=== PATIENT | female | born 1955 | race Caucasian/White ===

== ENCOUNTER 2020-09-10 10:11 | Inpatient (IN) | payer MEDICARE, SELFPAY ==
[2020-09-10] VITALS (13 sets, daily range): BP systolic 104–163; BP diastolic 46–86; PULSE 93–118; RESP 16–24; TEMP 36.2–37.4; O2SAT 94–100; BMI 30.7
[2020-09-10 11:01] LABS: Basophils % 0.7 %; Eosinophils # 0.2 10^3/uL (0.0-0.8); Eosinophils % 3.6 %; Hematocrit 41.3 % (37.0-47.0); Hemoglobin 13.2 g/dL (11.5-15.3); Lymphocytes # 0.4 10^3/uL (0.8-4.8); Lymphocytes % 6.7 %; Mean Corpuscular Hemoglobin 30.2 pg (28.0-34.0); Mean Corpuscular Volume 94.5 fL (81-99); Mean Platelet Volume 10.1 fL (7.4-10.4); Monocytes # 0.9 10^3/uL (0.2-0.9); Monocytes % 14.8 %; Neutrophils % 73.9 %; Nucleated Red Blood Cells % 0 %; Platelet Count 217 10^3/cmm (130-400); Red Blood Count 4.37 10^6/uL (4.1-5.3); Red Cell Distribution Width 12.7 % (12.1-15.1); White Blood Count 6.1 10^3/uL (4.0-10.0)
[2020-09-10 11:15] LABS: Alanine Aminotransferase 36 U/L (0-33); Albumin Level 4.4 g/dL (3.5-5.2); Alkaline Phosphatase 125 IU/L (35-105); Anion Gap 19.7 (5-19); Aspartate Amino Transferase 31 U/L (0-32); Blood Urea Nitrogen 28 mg/dL (8-23); Calcium 9.7 mg/dL (8.5-10.5); Carbon Dioxide 16 mmol/L (22-29); Chloride 101 mmol/L (98-107); Creatine Phosphokinase 218 U/L (26-192); Globulin 2.7 g/dL (1.3-4.6); Glomerular Filtration Rate 20.1 mL/min (90-130); Glucose 386 mg/dL (65-115); Magnesium 1.5 mg/dL (1.7-2.3); Osmolality Calculated 289 mOsm/kg (285-295); Sodium 129 mmol/L (136-145); Total Bilirubin 0.3 mg/dL (0.15-1.2); Total Protein 7.1 g/dL (6.6-8.7)
[2020-09-10] MEDS: sodium chloride 0.9% 1,000 ML 999 ML IV ×2 (11:16→15:40)
[2020-09-10 11:30] LABS: Potassium 7.7 mmol/L (3.5-5.1)
--- NOTE | 2020-09-10 11:42 | ECG_ITS ---
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 Measurements Intervals [place] Rate: 92 P: 151 [place]: 135 QRS: -26 QRSD: 97 T: 149 QT: 367 QTc: 455 Interpretive Statements SINUS RHYTHM LOW QRS VOLTAGE IN PRECORDIAL LEADS [QRS DEFLECTION < 1.0 mV IN CHEST LEADS] INCOMPLETE RIGHT BUNDLE BRANCH BLOCK [90+ ms QRS DURATION, TERMINAL R IN V1/V2, 40+ ms S IN I/aVL/V4/V5/V6] SEPTAL MYOCARDIAL INFARCTION , OF INDETERMINATE AGE [40+ ms Q WAVE IN V1/V2] Nonspecific T wave changes in the high lateral leads No previous ECG available for comparison Electronically Signed On 09-10-2020 20:12:15 RACKET STRINGER by Francisco Martinez M.D. [id number]
[2020-09-10] MEDS: dextrose 50% syringe 50 mL IVP (11:56)
[2020-09-10] MEDS: sodium bicarbonate 8.4% 1 mEq/mL 50mL Syr 50 MEQ IVP (11:57)
[2020-09-10] MEDS: insulin regular-human 100 units/1 mL 10 UNIT IVP (11:58)
[2020-09-10] MEDS: FUROsemide 10 mg/mL SDV 4mL 40 MG IVP (11:58)
--- NOTE | 2020-09-10 11:59 | W.ED.RECABL ---
HPI - Recheck/Abnormal Lab/Rx General: Chief Complaint: Recheck/Abnormal Lab/Rx Stated Complaint: weakness Time Seen by Provider: 09/10/20 10:21 History of Present Illness: HPI narrative: 65-year-old female with a history of chronic kidney disease in after she had some routine labs drawn by her primary care physician and reportedly there was some abnormalities including her potassium that was elevated as well as worsening renal function. The patient's only complaint is she has been intermittently weak. Patient reports that she has recently been on some new medications but she is unclear exactly what those are. She says one was for pain and another one was for an infection. Patient unfortunately is a somewhat poor historian and does not have her medications with her. Review of Systems General: Reports: 10 or more systems reviewed and unremarkable except in HPI and below Physical Exam Const: COMMON NORMALS: no acute distress, patient oriented x3, no limitations and healthy appearing EXAM LIMITATIONS: no altered mental status HENMT: COMMON NORMALS: normocephalic, atraumatic, hearing grossly normal bilaterally and Normal nasal mucous membranes and turbinates present HEAD & SCALP: normocephalic and atraumatic NOSE: Normal nasal mucous membranes and turbinates present Chest: COMMONS NORMALS: normal inspection of the chest Resp: COMMON NORMALS: normal respiratory effort EFFORT & INSPECTION: Yes able to speak in complete sentences Cardio: COMMON NORMALS: regular rate, regular rhythm and S1 normal heart sound present RATE: regular rate RHYTHM: regular rhythm HEART SOUNDS: S1 normal heart sound present GI: COMMON NORMALS: Normal to inspection, nondistended, normoactive bowel sounds present, Soft to palpation and non-tender PALPATION: Yes Soft to palpation Neuro: TEMITOPE COMA SCALE: document GCS findings COMMON NORMALS: patient oriented x3, CN's II-XII intact bilaterally and moves all extremities Skin: COMMON NORMALS: no rashes or lesions noted GENERAL SKIN EXAM: no rashes or lesions noted Course Vital Signs: Vital signs: Vital Signs Temperature 97.1 F L 09/10/20 10:13 Pulse Rate 106 H 09/10/20 13:15 Respiratory Rate 16 09/10/20 13:15 Blood Pressure 148/78 09/10/20 12:20 Pulse Oximetry 98 09/10/20 13:15 MDM - Recheck/Abnormal Lab/Rx MDM Narrative: Medical decision making narrative: 65-year-old female sent over for abnormal labs. We will plan on repeating those labs and add a magnesium and creatinine kinase and give her some IV fluids now check an EKG and will wait for lab results make further recommendations. Labs came back markedly abnormal. Patient has significantly elevated potassium but surprisingly she does not have a lot of EKG changes with this. We will have to check and see if we can find some old labs for comparison but she likely needs to come in the hospital for treatment of hyperkalemia and acute on chronic kidney injury. Called and talked with Dr. Altman her last creatinine back in June was 1.1 with a normal potassium. Patient has been given a cocktail of medications to treat her hyperkalemia. Will admit to the hospitalist. Talked to Hospitalist who will come down and see the patient in the ED. Lab Data: Labs: Lab Results 09/10/20 09/10/20 09/10/20 Range/Units 10:50 10:50 12:28 WBC 6.1 (4.0-10.0) 10^3/ uL RBC 4.37 (4.1-5.3) 10^6/u L Hgb 13.2 (11.5-15.3) g/dL Hct 41.3 (37.0-47.0) % MCV 94.5 (81-99) fL MCH 30.2 (28.0-34.0) pg MCHC 32.0 (30.0-36.0) g/dL RDW 12.7 (12.1-15.1) % Plt Count 217 (130-400) 10^3/c mm MPV 10.1 (7.4-10.4) fL Neut % (Auto) 73.9 % Lymph % (Auto) 6.7 % Isabela % (Auto) 14.8 % Eos % (Auto) 3.6 % Baso % (Auto) 0.7 % Neut # (Auto) 4.50 (1.8-7.7) 10^3/u L Lymph # (Auto) 0.4 L (0.8-4.8) 10^3/u L Isabela # (Auto) 0.9 (0.2-0.9) 10^3/u L Eos # (Auto) 0.2 (0.0-0.8) 10^3/u L Baso # (Auto) 0.0 (0.0-0.1) 10^3/u L Nucleated RBC % (a uto) 0 % Nucleated RBCs # 0.0 /100WBC Sodium 129 L (136-145) mmol/L Potassium 7.7 H* (3.5-5.1) mmol/L Chloride 101 (98-107) mmol/L Carbon Dioxide 16 L (22-29) mmol/L Anion Gap 19.7 H (5-19) BUN 28 H (8-23) mg/dL Creatinine 2.4 H (0.5-0.9) mg/dL GFR Calculation 20.1 L (90-130) mL/min Glucose 386 H (65-115) mg/dL Calculated Osmolal ity 289 (285-295) mOsm/k g Calcium 9.7 (8.5-10.5) mg/dL Magnesium 1.5 L (1.7-2.3) mg/dL Total Bilirubin 0.3 (0.15-1.2) mg/dL AST 31 (0-32) U/L ALT 36 H (0-33) U/L Alkaline Phosphata se 125 H (35-105) IU/L Creatine Kinase 218 H (26-192) U/L Total Protein 7.1 (6.6-8.7) g/dL Albumin 4.4 (3.5-5.2) g/dL Globulin 2.7 (1.3-4.6) g/dL Urine Color Yellow (Yellow) Urine Appearance Clear (CLEAR) Urine pH 6 (5-7) Ur Specific Gravit y 1.005 (1.005-1.030) Urine Protein Neg (Negative) Urine Glucose (UA) 4+ H (Normal) Urine Ketones Negative (Negative) Urine Blood Neg (Negative) Urine Nitrate Negative (Negative) Urine Bilirubin Neg (Negative) Urine Urobilinogen Norm (Negative) mg/dL Ur Leukocyte Alaina ase Negative (Negative) Discharge Plan Discharge Patient Disposition: Admitted As Inpatient Clinical Impression: Acute hyperkalemia, LULA (acute kidney injury) Condition: Stable Discharge Diet: Advance as tolerated Discharge Activity: Resume usual activity Coding Level of Care Code ED Hospice Massage Therapist for g Fwd Exam Comprehensive
[2020-09-10 12:44] LABS: Add Urine Microscopic? NO
[2020-09-10 12:55] LABS: Bilirubin Urine Neg (Negative); Blood Urine Neg (Negative); Glucose Urine UA 4+ (Normal); Ketones Urine Negative (Negative); Leukocyte Esterase Urine Negative (Negative); Nitrate Urine Negative (Negative); Protein Urine Neg (Negative); Specific Gravity, Urine 1.005 (1.005-1.030); Urine Appearance Clear (CLEAR); Urine Color Yellow (Yellow); Urobilinogen Urine Norm (Negative); pH Urine 6 (5-7)
--- NOTE | 2020-09-10 14:55 | PM.HP ---
Providers/Chief Complaint Admitting Physician: Mireya Lozano MD Primary Care Provider: Dr. Lennox Altman Chief Complaint: weakness, abnormal labs History of Present Illness Sarah Beatty is a 65 year old female with PMHx noted below presents to the ER after having received a phone call from her doctor's office due to noted abnormal labs. Labs were done yesterday as part of her routine work-up and it seems that this was primarily involving her kidney function. Per documentation from the ER it seems that her previous renal function done in June showed a creatinine of 1.1 with normal potassium. Labs done today indicate creatinine of 2.4 with noted hyperkalemia with a potassium of 7.7. She also has noted hyponatremia with a sodium of 129 though when corrected for hyperglycemia is about 134, CPK of 218, magnesium of 1.5, anion gap of 19.7, ALT of 36, normal CBC. No significant EKG changes noted. So far she has received 1 L normal saline bolus, lasix, calcium gluconate, albuterol, insulin and D50, sodium bicarbonate. She is resting comfortably in bed, niece is at bedside during my evaluation in the ER. Review of her medication list includes allopurinol, glimepiride, losartan, meloxicam and most recently addition of Bactrim for what she describes as sinusitis of which she has been taking a total of 7 days worth. She denies any shortness of breath, chest pain, lower extremity swelling, abdominal pain, nausea/vomiting, change in her appetite, change in her urinary or bowel habits. She does admit to having had some difficulty with ambulation and some generalized weakness over the past 2 days. Denies any recent falls and typically ambulates independently. She does not remember having taken Bactrim before. She will be admitted for further management of acute kidney injury and hyperkalemia. Review of Systems Const: Denies: fever(s), chills, change in appetite, fatigue or malaise Eyes: Denies: change in vision ENMT: Reports: post nasal drip Card: Denies: chest pain, swelling of feet/ankles or lightheadedness Resp: Denies: dyspnea, productive cough or non-productive cough GI: Denies: abdominal pain, nausea, vomiting, hematemesis or hematochezia : Denies: difficulty voiding, dysuria, oliguria or hematuria Musc: Denies: back pain Skin/Breast: Denies: rash Neuro: Reports: weakness in extremities, difficulty walking, dizziness and vertigo; Denies: numbness in extremities or frequent falls Psych: Denies: anxiety Medications/Allergies Home Medications Medication Instructions Recorded Confirmed Last Taken Type allopurinol 300 mg PO DAILY@0909/10/20 09/10/20 09/10/20 History atorvastatin 10 mg PO DAILY@209909/10/20 09/10/20 09/09/20 History cetirizine 10 mg PO DAILY@89909/10/20 09/10/20 09/10/20 History coQ10 (ubiquinol) 200 mg PO DAILY@89909/10/20 09/10/20 09/10/20 History glimepiride 2 mg PO DAILY@209909/10/20 09/10/20 09/09/20 History losartan 100 mg PO DAILY@209909/10/20 09/10/20 09/09/20 History meloxicam 7.5 mg PO DAILY@89909/10/20 09/10/20 09/10/20 History multivitamin [Multi-Vitamins] 1 tab PO DAILY@0900 09/10/20 09/10/20 Unknown History sulfamethoxazole-trimethoprim 1 tab PO BID@0900,209909/10/20 09/10/20 09/10/20 History Allergies Allergy/AdvReac Type Severity Reaction Status Date / Time cephalexin [From Keflex] Allergy ALGY-Rash Verified 09/10/20 10:23 Penicillins Allergy ALGY-Rash Verified 09/10/20 10:23 PFSH Acute PFSH: Medical History Dyslipidemia Gout HTN (hypertension) Non-insulin dependent diabetes mellitus Obesity Surgical History S/P tubal ligation Family History (Updated 09/10/20 @ 15:04 by Mireya Lozano MD) Sister Diabetes Daughter No problems noted. Brother Diabetes Social History (Updated 09/10/20 @ 15:04 by Mireya Lozano MD) Smoking and tobacco status: never smoked Alcohol intake: never Substance/Drug Use: never Lives independently: Yes Vitals/I&O/Wt Last Vital Signs Temp 97.1 F L 09/10/20 10:13 Pulse 107 H 09/10/20 13:30 Resp 16 09/10/20 13:15 BP 136/86 09/10/20 13:00 Pulse Ox 98 09/10/20 13:15 Weight last 48 hrs Weight 86.183 kg Physical Exam Const: COMMON NORMALS: no acute distress, patient oriented x3 and alert GENERAL APPEARANCE: cooperative and comfortable NUTRITIONAL APPEARANCE: obese ORIENTATION/CONSCIOUSNESS: Yes awake HENMT: COMMON NORMALS: normocephalic, atraumatic, hearing grossly normal bilaterally and moist oral mucous membranes HEAD & SCALP: normocephalic and atraumatic Eye: COMMON NORMALS: Equal, round and reactive pupils present, EOMs intact bilaterally and conjunctivae normal CONJUNCTIVA: Yes conjunctivae normal PUPIL: Yes Equal, round and reactive pupils present Neck/C-Spine: COMMON NORMALS: full ROM GENERAL: Yes normal visual inspection and Yes trachea midline Resp: COMMON NORMALS: normal respiratory effort, No retractions, No use of accessory muscles and clear to auscultation bilaterally EFFORT & INSPECTION: Yes able to speak in complete sentences, Yes symmetric chest movement and No tachypneic AUSCULTATION: clear to auscultation bilaterally OTHER: -on RA Cardio: COMMON NORMALS: regular rhythm, S1 normal heart sound present, S2 normal heart sound present and No murmurs present (Cardio) RATE: tachycardic (HR in 120s) RHYTHM: regular rhythm HEART SOUNDS: S1 normal heart sound present and S2 normal heart sound present GI: COMMON NORMALS: Normal to inspection, nondistended, normoactive bowel sounds present, Soft to palpation and non-tender INSPECTION: Yes central obesity PALPATION: Yes Soft to palpation Extremity: COMMON NORMALS: normal to inspection, full ROM and no clubbing, cyanosis or edema; negative for no pedal edema Neuro: COMMON NORMALS: patient oriented x3, moves all extremities, no focal motor deficits and no sensory deficits noted Psych: COMMON NORMALS: mental status grossly normal, Normal thought process present, cooperative, normal affect and speech normal SPEECH: Yes normal speech THOUGHT PROCESS: Normal thought process present Skin: COMMON NORMALS: no rashes or lesions noted, no jaundice, no petechiae and no mottling GENERAL SKIN EXAM: no rashes or lesions noted Data : 09/10/20 10:50 09/10/20 10:50 A&P Assessment and plan (1) Acute hyperkalemia: -initial K-7.7; has received 1 L NS bolus, lasix, insulin and D50, calcium gluconate, albuterol -repeat labs now -give additional NS bolus -ECG reviewed; no apparent T wave changes, QRS wnl -telemetry monitoring Status: Acute (2) LULA (acute kidney injury): -no comparison labs available so unclear baseline -suspect that this is medication induced given timeline -monitor renal function -IVF hydration -monitor urine output closely -avoid nephrotoxins, hold NSAIDs, oral hypoglycemics, diuretics, ARB, Bactrim (has been taking this x 1 week) -check Mg, Ph in AM -noted slight CPK elevation (218); repeat in AM Status: Acute (3) Non-insulin dependent diabetes mellitus: -check A1c -Accucheks, hypoglycemia precautions, ISS -consistent carb diet as tolerated Status: Chronic (4) HTN (hypertension): -monitor vital signs -hold ARB -low dose BB due to noted tachycardia Status: Chronic Qualifiers: Hypertension type: essential hypertension Qualified Code(s): I10 - Essential (primary) hypertension (5) Dyslipidemia: -hold statin for now Status: Chronic Additional A&P Information -Morbid obesity: BMI-31 kg/m2 -DVT ppx not needed as low risk -up with assist -Dispo: home -Code status: FULL code -Admit to medical-surgical floor Attestations Medical Necessity Statement*: Sarah Valverde [facility]'s hospital stay will require greater than 2 midnights for management of acute kidney injury and hyperkalemia including IV fluid hydration and close monitoring of labs. Time Spent in Patient Care: Greater than 35 minutes (>than 50% of time spent in counselling and/or direct pt care on unit). Coding Level of Care Code Acute Senior Talent Acquisition Specialist for Nadeem Mckeon Diagnoses Acute hyperkalemia E87.5 LULA (acute kidney injury) N17.9 Non-insulin dependent diabetes mellitus HTN (hypertension) I10 Hypertension type: essential hypertension Dyslipidemia E78.5
[2020-09-10 18:17] LABS: Anion Gap 20.9 (5-19); Blood Urea Nitrogen 25 mg/dL (8-23); Calcium 8.9 mg/dL (8.5-10.5); Carbon Dioxide 14 mmol/L (22-29); Chloride 102 mmol/L (98-107); Glomerular Filtration Rate 22.3 mL/min (90-130); Glucose 431 mg/dL (65-115); Osmolality Calculated 295 mOsm/kg (285-295); Potassium 5.9 mmol/L (3.5-5.1); Sodium 131 mmol/L (136-145)
[2020-09-10] MEDS: dextrose 50% syringe 50 mL 25 ML IVP (20:48)
[2020-09-10] MEDS: sodium chloride 0.9% 1,000 ML 125 ML IV (20:48)
[2020-09-10] MEDS: insulin regular-human 10 UNIT in SYRINGE 1 EACH IVP (20:48)
[2020-09-10 21:36] LABS: Glucose Point of Care 364 mg/dL (70-110)
[2020-09-10] MEDS: metoprolol tartrate 25 mg Tablet PO (22:46)
[2020-09-10 23:54] LABS: Anion Gap 15.8 (5-19); Blood Urea Nitrogen 24 mg/dL (8-23); Calcium 9.7 mg/dL (8.5-10.5); Carbon Dioxide 18 mmol/L (22-29); Chloride 106 mmol/L (98-107); Glomerular Filtration Rate 23.5 mL/min (90-130); Glucose 273 mg/dL (65-115); Osmolality Calculated 292 mOsm/kg (285-295); Potassium 5.8 mmol/L (3.5-5.1); Sodium 134 mmol/L (136-145)
[2020-09-11] VITALS (7 sets, daily range): BP systolic 112–126; BP diastolic 65–72; PULSE 78–102; RESP 17–18; TEMP 36.6–39.1; O2SAT 91–96
[2020-09-11] MEDS: sodium chloride 0.9% 1,000 ML 125 ML IV ×2 (05:31→15:30)
[2020-09-11 06:01] LABS: Basophils % 0.2 %; Eosinophils # 0.1 10^3/uL (0.0-0.8); Eosinophils % 2.6 %; Hematocrit 34.4 % (37.0-47.0); Hemoglobin 10.8 g/dL (11.5-15.3); Lymphocytes # 0.8 10^3/uL (0.8-4.8); Lymphocytes % 15.2 %; Mean Corpuscular HGB Conc 31.4 g/dL (30.0-36.0); Mean Corpuscular Hemoglobin 29.4 pg (28.0-34.0); Mean Corpuscular Volume 93.7 fL (81-99); Mean Platelet Volume 10.4 fL (7.4-10.4); Monocytes # 0.9 10^3/uL (0.2-0.9); Monocytes % 17.7 %; Neutrophils # 3.26 10^3/uL (1.8-7.7); Neutrophils % 64.1 %; Nucleated Red Blood Cells % 0 %; Platelet Count 182 10^3/cmm (130-400); Red Blood Count 3.67 10^6/uL (4.1-5.3); Red Cell Distribution Width 12.8 % (12.1-15.1); White Blood Count 5.1 10^3/uL (4.0-10.0)
[2020-09-11 06:15] LABS: Glucose Point of Care 136 mg/dL (70-110)
[2020-09-11 07:11] LABS: Estmated Average Glucose 243; Hemoglobin A1C 10.1 % (4.0-6.0)
[2020-09-11] MEDS: multivitamin therapeutic Tablet 1 TAB PO (09:09)
[2020-09-11] MEDS: metoprolol tartrate 25 mg Tablet PO (09:09)
[2020-09-11 09:31] LABS: Alanine Aminotransferase 27 U/L (0-33); Albumin Level 3.7 g/dL (3.5-5.2); Alkaline Phosphatase 99 IU/L (35-105); Anion Gap 14.8 (5-19); Aspartate Amino Transferase 24 U/L (0-32); Blood Urea Nitrogen 22 mg/dL (8-23); Calcium 9.5 mg/dL (8.5-10.5); Carbon Dioxide 18 mmol/L (22-29); Chloride 107 mmol/L (98-107); Creatine Phosphokinase 307 U/L (26-192); Globulin 2.4 g/dL (1.3-4.6); Glomerular Filtration Rate 23.5 mL/min (90-130); Glucose 146 mg/dL (65-115); Magnesium 1.4 mg/dL (1.7-2.3); Osmolality Calculated 284 mOsm/kg (285-295); Phosphorus 3.4 mg/dL (2.5-4.5); Potassium 5.8 mmol/L (3.5-5.1); Sodium 134 mmol/L (136-145); Thyroid Stimulating Hormone 1.36 uIU/mL (0.27-4.20); Total Bilirubin 0.3 mg/dL (0.15-1.2); Total Protein 6.1 g/dL (6.6-8.7)
--- NOTE | 2020-09-11 10:36 | PC.CHAP ---
Pastoral Care Encounter/Spiritual Assessment Type of Contact [] Declined it telecom technician visit [] Patient/Family/Request visit [] Outpatient visit [] Follow-up visit [] Physician referral [] Code/Alert [x] Routine visit [] Staff referral [] Actively dying [] Patient sleeping [] Family support [] [] Out of room [] Palliative care [] [x] Receiving care in room [] Pre-surgical visit [] Trauma [] Long length of stay [] ICU visit [] Other: Relational/Emotional Strength [x] Patient feels connected with others/family/visitors/staff [] Distress [] Loneliness/isolation [] Abandonment Spirituality of Patient [x] Person of [place] [] Attends Gnosticism of their [place] [x] Believes in Prayer [] Reads Bible or Zoroastrian materials [] There are Spiritual issues to be addressed Physician Obstetrician Interventions [x] Prayer [x] Active listening [x] Non-anxious presence [x] Spiritual/emotional support [] Crisis/trauma care [x] Spiritual counseling [] Bereavement support [] Provided bereavement packet [] Provided Bible/devotional materials [] Provided toy/stuffed animal, coloring book to patient or family member [] Provided Communion [] Anointing/[place] [] Salvation [x] Completed spiritual assessment [] Other: Impact on Illness or Injury [] Angry [] Fearful [x] Anxious [] Often cries [] Exhaustion [] Unable to work [] Unable to attend moravian [] Unable to walk/stand [] Unable to read [] Unable to drive [] Unable to eat/drink [] Unable to sleep [] Unable to be with family [] Patient intubated [] Other: Summary Has had some tests not sure about her recovery time , has a good attitude Time spent with patient 10 mins
[2020-09-11 10:51] LABS: Glucose Point of Care 261 mg/dL (70-110)
[2020-09-11] MEDS: diphenhydrAMINE 25 mg Capsule PO (11:44)
--- NOTE | 2020-09-11 12:10 | P.PN_ITS ---
Subjective Subjective: Interval history: Had 200 mL urine output overnight and an additional 600 mL this AM. VSS, afebrile, on RA. Continued hyperkalemia and renal impairment. Noted to have generalized itching and hives, unclear what may have caused this as this seems to be an allergic reaction, no wheezing, throat itching, coughing, facial swelling. Difficulty with IV access today. Repeat K th is afternoon worse, as high as 6.8 so nephrology consulted. Medications: Reviewed: Yes Medication Review Details: Active Medications Generic Name Dose Route Start Last Admin Trade Name Freq PRN Reason Stop Dose Admin Acetaminophen 650 mg 09/10/20 19:32 Acetaminophen 32 5 Mg Tablet PO Q6H PRN Mild/Mod Pain Or Temp >/= 101 Dextrose 25 ml 09/10/20 19:32 Dextrose 50% Syr bridgette 50 Ml IVP ONCE PRN hypoglycemia prot ocol Protocol Dextrose 50 ml 09/10/20 19:32 Dextrose 50% Syr bridgette 50 Ml IVP PRN PRN hypoglycemia prot ocol Protocol Diphenhydramine HC l 25 mg 09/11/20 11:05 09/11/20 11:44 Diphenhydramine 25 Mg Capsule PO 25 mg Q6H PRN Administration ITCHING Glucagon 1 mg 09/10/20 19:32 Glucagon 1 Mg/Ml Inj 1 Ml IM ONCE PRN Adult Acute Hypog lycemia Prot. Protocol Dextrose 500 mls @ 100 mls /hr 09/10/20 19:32 D5w IV ONCE PRN Adult Acute Hypog lycemia Prot Protocol Sodium Chloride 1,000 mls @ 125 m ls/hr 09/10/20 19:32 09/11/20 05:31 Sodium Chloride 0.9% IV 125 mls/hr .Q8H PRATIBHA Administration Insulin Aspart 0 unit 09/10/20 19:32 09/11/20 07:56 Insulin Aspart 1 00 Unit/1 Ml SUBCUT Not Given WM&BEDTIME PRATIBHA Protocol Metoprolol Tartrat e 25 mg 09/10/20 21:00 09/11/20 09:09 Metoprolol Tartr ate 25 Mg Tablet PO 25 mg BID@0900,2100 PRATIBHA Administration Morphine Sulfate 2 mg 09/10/20 19:32 Morphine 4 Mg/Ml Sdv 1 Ml IVP Q4H PRN SEVERE PAIN Multivitamins Ther apeutic 1 tab 09/11/20 09:00 09/11/20 09:09 Multivitamin The rapeutic Tablet PO 1 tab DAILY@0900 PRATIBHA Administration Ondansetron HCl 4 mg 09/10/20 19:32 Ondansetron 2 Mg /Ml Sdv 2 Ml IVP Q8H PRN vomiting, or N/V if npo cephalexin [From Keflex] Allergy (Verified 09/10/20 10:23) ALGY-Rash Penicillins Allergy (Verified 09/10/20 10:23) ALGY-Rash Vitals/I&O/Wt Last Vital Signs Temp 97.8 F 09/11/20 08:32 Pulse 85 09/11/20 08:32 Resp 17 09/11/20 08:32 BP 112/65 09/11/20 08:32 Pulse Ox 96 09/11/20 08:32 09/10/20 09/11/20 09/11/20 22:59 06:59 14:59 Intake Total 2059 / 2059 1000 / 3060 240 / 240 Output Total 200 / 200 600 / 600 Balance 2059 800 / 2860 -360 / -360 Weight last 48 hrs Weight 86.183 kg Physical Exam Const: COMMON NORMALS: no acute distress, patient oriented x3 and alert GENERAL APPEARANCE: cooperative and comfortable NUTRITIONAL APPEARANCE: obese ORIENTATION/CONSCIOUSNESS: Yes awake HENMT: COMMON NORMALS: normocephalic, atraumatic, hearing grossly normal bilaterally and moist oral mucous membranes HEAD & SCALP: normocephalic and atraumatic Eye: COMMON NORMALS: Equal, round and reactive pupils present, EOMs intact bilaterally and conjunctivae normal CONJUNCTIVA: Yes conjunctivae normal PUPIL: Yes Equal, round and reactive pupils present Neck/C-Spine: COMMON NORMALS: full ROM GENERAL: Yes normal visual inspect ion and Yes trachea midline Resp: COMMON NORMALS: normal respiratory effort, No retractions, No use of accessory muscles and clear to auscultation bilaterally EFFORT & INSPECTION: Yes able to speak in complete sentences, Yes symmetric chest movement and No tachypneic AUSCULTATION: clear to auscultation bilaterally OTHER: -on RA Cardio: COMMON NORMALS: regular rate, regular rhythm, S1 normal heart sound present, S2 normal heart sound present and No murmurs present (Cardio) RATE: regular rate RHYTHM: regular rhythm HEART SOUNDS: S1 normal heart sound present and S2 normal heart sound present GI: COMMON NORMALS: Normal to inspection, nondistended, normoactive bowel sounds present, Soft to palpation and non-tender INSPECTION: Yes central obesity PALPATION: Yes Soft to palpation Extremity: COMMON NORMALS: normal to inspection, full ROM and no clubbing, cyanosis or edema; negative for no pedal edema Neuro: COMMON NORMALS: patient oriented x3, moves all extremities, no focal motor deficits and no sensory deficits noted SENSORIUM/ORIENTATION: Yes alert Psych: COMMON NORMALS: mental status grossly normal, Normal thought process present, cooperative, normal affect and speech normal SPEECH: Yes normal speech THOUGHT PROCESS: Normal thought process present Skin: COMMON NORMALS: no jaundice, no petechiae and no mottling OTHER: -generalized urticaria, pruritic, warm to touch Data : 09/11/20 04:32 09/11/20 14:15 A&P Assessment and plan (1) Acute hyperkalemia: -initial K-7.7; has received 1 L NS bolus, lasix, insulin and D50, calcium gluconate, albuterol. Some improvement but not quite normalized -continue to monitor -ECG reviewed; no apparent T wave changes, QRS wnl -telemetry monitoring -Nephrology consult appreciated Status: Acute (2) LULA (acute kidney injury): -no comparison labs available so unclear baseline -suspect that this is medication induced given timeline -continue to monitor renal function -IVF hydration -continue to monitor urine output closely -avoid nephrotoxins, hold NSAIDs, oral hypoglycemics, diuretics, ARB, Bactrim (has been taking this x 1 week) -Mg-1.4, Ph-3.4 -mild rhabdomyolysis; noted slight CPK elevation (218->307); continue to trend Status: Acute (3) Non-insulin dependent diabetes mellitus: -A1c-10.1; poorly controlled -Accucheks, hypoglycemia precautions, ISS; add Lantus -consistent carb diet as tolerated Status: Chronic (4) HTN (hypertension): -continue to monitor vital signs -continue to hold ARB -low dose BB due to noted tachycardia discontinued due to possible allergic reaction Status: Chronic Qualifiers: Hypertension type: essential hypertension Qualified Code(s): I10 - Essential (primary) hypertension (5) Dyslipidemia: -continue to hold statin due to CPK elevation Status: Chronic Additional A&P Information -Morbid obesity: BMI-31 kg/m2 -acute allergic reaction; suspicion for reaction to BB (new medication), less likely to be food. On steroids, famotidine, benadryl. No airway compromise at this time -DVT ppx not needed as low risk -up with assist -Dispo: home -Code status: FULL code Attestations Medical Necessity Statement*: Patient requires hospitalization for continued management of acute renal impairment, hyperkalemia, rhabdomyolysis, acute allergic reaction. Time Spent in Patient Care: 16 - 35 minutes (>than 50% of time spent in counselling and/or direct pt care on unit) . Coding Level of Care Code Acute Classified Advertising Manager for Chg Fwd Exam Comprehensive Diagnoses Acute hyperkalemia E87.5 LULA (acute kidney injury) N17.9 Non-insulin dependent diabetes mellitus HTN (hypertension) I10 Hypertension type: essential hypertension Dyslipidemia E78.5
[2020-09-11 14:43] LABS: Anion Gap 16.8 (5-19); Blood Urea Nitrogen 24 mg/dL (8-23); Calcium 9.2 mg/dL (8.5-10.5); Carbon Dioxide 17 mmol/L (22-29); Chloride 103 mmol/L (98-107); Glomerular Filtration Rate 24.9 mL/min (90-130); Glucose 225 mg/dL (65-115); Osmolality Calculated 281 mOsm/kg (285-295); Sodium 130 mmol/L (136-145)
[2020-09-11 15:04] LABS: Potassium 6.8 mmol/L (3.5-5.1)
[2020-09-11] MEDS: dextrose 50% syringe 50 mL IVP (15:28)
[2020-09-11] MEDS: insulin regular-human 10 UNIT in SYRINGE 1 EACH IVP (15:29)
[2020-09-11] MEDS: calcium gluconate 0.1 gm/mL 10% SDV 10mL 1 GM IVP (15:29)
[2020-09-11] MEDS: sodium polystyrene sulfonate 15 gm/60 mL Btl PO (15:29)
[2020-09-11] MEDS: magnesium sulfate premix 2 GM/50 ML PIGGYBACK IV (15:30)
--- NOTE | 2020-09-11 15:48 | US_ITS ---
WS: [id number] RENAL ULTRASOUND HISTORY: kidney failure COMPARISON: None Technically limited and difficult evaluation due to body habitus and difficulty moving. TECHNIQUE: 2-D and color Doppler imaging of the kidney submitted. Right kidney: 10.0 cm x 4.9 cm x 5.1 cm. Normal echogenicity with no hydronephrosis or mass. Left kidney: 10.2 cm x 3.5 cm x 4.4 cm. Normal echogenicity with no hydronephrosis or mass. Aorta: Limited visualization appears negative. Urinary Bladder: Normally distended. No filling defects. US/US renal BI* [id number] IMPRESSION: Technically limited evaluation of the kidneys. No hydronephrosis or mass identi fied.
--- NOTE | 2020-09-11 15:55 | XR_ITS ---
WS: [id number] Portable AP upright chest, 09/11/2020 Clinical Data: fevers, jeana Comparison: None. Findings: No nodules, masses or effusions are seen. The heart is normal. The pulmonary vascularity is not increased. No pneumonia or pneumothorax is seen. The aortic arch shows mild calcification Monito r leads are on the chest wall. XR/XR chest 1V portable [id number] Impression: Atherosclerosis.
--- NOTE | 2020-09-11 15:58 | P.CONIM_ITS ---
Providers/Reason For Consult Consulting Physican/Specialty*: anamaria womack md / telenephrology Reason for Consult*: timothy/ hyperkalemia Attending Physician: Mireya Lozano MD History of Present Illness History of Present Illness Sarah Beatty is a 65 year old female admitted yesterday for Timothy and hyperkalemia. She has h/o dm, arthritis, gout and htn. Her DM is poorly controlled w/ hgb a1c of 10. Pt recently started mobic for pain a few weeks ago. she is also on losartan for htn, and was given bactrim 1 week ago for a sinusitis. pt was snet to ER for TIMOTHY and hyperkalemia. basleine cr is 1.1 mg/dl. yesterday was 2.4, and k of 7.7 meq. pt was treated mecially for hyperkalemia and it improved to 5.8. this afternoon repeat labs has k 6.8 and cr down to 2, na 130, and renal was called. Pt also jsut broke into a rash and swelling- given benadryl and steroids. Review of Systems General: Reports: 10 or more systems reviewed and unremarkable except in HPI and below Narrative: weak, sinus pain, chronic blurry vision, HERN[place]NDEZ, no sob at rest, no gi symptoms. + anxious. + joint pains Meds/Allergies Home Medications and Allergies Home Medications Medication Instructions Recorded Confirmed Last Taken Type allopurinol 300 mg PO DAILY@89909/10/20 09/10/20 09/10/20 History atorvastatin 10 mg PO DAILY@209909/10/20 09/10/20 09/09/20 History cetirizine 10 mg PO DAILY@89909/10/20 09/10/20 09/10/20 History coQ10 (ubiquinol) 200 mg PO DAILY@89909/10/20 09/10/20 09/10/20 History glimepiride 2 mg PO DAILY@209909/10/20 09/10/20 09/09/20 History losartan 100 mg PO DAILY@209909/10/20 09/10/20 09/09/20 History meloxicam 7.5 mg PO DAILY@89909/10/20 09/10/20 09/10/20 History multivitamin [Multi-Vitamins] 1 tab PO DAILY@89909/10/2009/10/21 Unknown History sulfamethoxazole-trimethoprim 1 tab PO BID@0900,2100 09/10/20 09/10/20 09/10/20 History Allergies Allergy/AdvReac Type Severity Reaction Status Date / Time cephalexin [From Keflex] Allergy ALGY-Rash Verified 09/10/20 10:23 metoprolol Allergy ALGY-Hives Verified 09/11/20 16:03 Penicillins Allergy ALGY-Rash Verified 09/10/20 10:23 Current Medications Current Medications Generic Name Dose Route Start Last Admin Trade Name Qamar PRN Reason Stop Dose Admin Insulin Aspart 0 unit 09/10/20 19:32 09/11/20 15:37 Insulin Aspart 100 Unit/1 Ml SUBCUT Not Given WM&BEDTIME PRATIBHA Protocol Methylprednisolone Sodium Succinate 40 mg 09/11/20 14:30 09/11/20 15:46 Methylprednisolone Sod Succ 40 Mg/Ml Inj IVP 40 mg Q6H PRATIBHA Administration Multivitamins Therapeutic 1 tab 09/11/20 09:00 09/11/20 09:09 Multivitamin Therapeutic Tablet PO 1 tab DAILY@0900 PRATIBHA Administration PFSH Acute PFSH: Medical History (Updated 09/10/20 @ 15:28 by Mireya Lozano MD) Dyslipidemia Gout HTN (hypertension) Non-insulin dependent diabetes mellitus Obesity Surgical History S/P tubal ligation Family History (Updated 09/10/20 @ 15:04 by Mireya Lozano MD) Sister Diabetes Daughter No problems noted. Brother Diabetes Social History (Updated 09/10/20 @ 15:04 by Mireya Lozano MD) Smoking and tobacco status: never smoked Alcohol intake: never Substance/Drug Use: never Lives independently: Yes Vitals/I&O/Wt Last Vital Signs Temp 102.3 F H 09/11/20 13:59 Pulse 88 09/11/20 11:30 Resp 17 09/11/20 11:30 BP 126/72 09/11/20 11:30 Pulse Ox 96 09/11/20 11:30 09/11/20 09/11/20 09/11/20 06:59 14:59 22:59 Intake Total 1000 / 3060 1240 / 1240 Output Total 200 / 200 600 / 600 Balance 800 / 2860 640 / 640 Weight last 48 hrs Weight 86.183 kg Physical Exam Narrative: EXAM NARRATIVE: febrile, uncomfortable, rash in bed BP stable heent- nc/at, seollen neck no jvp lungs clear heart reg, no rub, +KRYSTINA abd soft, nt, nd, +BS ext no edmea skin- diffuse red rash A&P Additional A&P Information 65 yr old female 1. uncontrolled dm- hgba1c of 10 2. TIMOTHY- likely from Mobic, losartan, and bactrim- agree w/ stopping all 3 =also concerned for AIN- as rash, fevers, and TIMOTHY. However, her ua is atypical for AIN, and so far no significant eosinophilia. -ua w/ 4+ gluc, no leuk est, no protein -check renal us -check ck -give ivf -cr is improving 3. hyperkalemia- from TIMOTHY, and recent mobic, bactrim, and losartan use in an uncontrolled dm -rec- sugar control -low k diet -telemetry -monitor chem 7 q 6 hrs -pt was treated medically -change ivf to 1/2 NS and 75 of sodium bicarb 4. hyponatremia- await ur lytes- can be from timothy and hyperglycemia may be dry 5. non AGMA- from timothy, ns ivf 6. replace mag as needed meds reviewed discussed w/ pt, RN, and Dr. Lozano Consult Attestations Medical Necessity Statement: timothy, electrolyte abnormalities, fevers, rash Time Spent in Patient Care: Greater than 35 minutes Coding Level of Care Code Acute Workforce Development Program Director for Nadeem Mckeon
[2020-09-11 16:13] LABS: Uric Acid 3.8 mg/dL (2.4-5.7)
[2020-09-11 16:14] LABS: Complement C3 115 mg/dL (90-180)
[2020-09-11 17:25] LABS: Glucose Point of Care 203 mg/dL (70-110)
[2020-09-11] MEDS: lanolin oint 7 gm 1 APPLIC TOPICAL (18:20)
[2020-09-11] MEDS: famotidine 20 mg Tablet PO (18:21)
[2020-09-11] MEDS: diphenhydrAMINE 25 mg Capsule 50 MG PO (18:21)
[2020-09-11 20:49] LABS: Glucose Point of Care 305 mg/dL (70-110)
[2020-09-11] MEDS: insulin glargine 100 units/1 mL 10 UNIT SUBCUT (21:01)
[2020-09-12] VITALS (9 sets, daily range): BP systolic 111–149; BP diastolic 52–78; PULSE 79–97; RESP 16–20; TEMP 36.4–37.2; O2SAT 94–97
[2020-09-12 01:35] LABS: Alanine Aminotransferase 28 U/L (0-33); Albumin Level 3.4 g/dL (3.5-5.2); Alkaline Phosphatase 93 IU/L (35-105); Anion Gap 17.2 (5-19); Aspartate Amino Transferase 27 U/L (0-32); Blood Urea Nitrogen 27 mg/dL (8-23); Calcium 9.5 mg/dL (8.5-10.5); Carbon Dioxide 18 mmol/L (22-29); Chloride 101 mmol/L (98-107); Creatine Phosphokinase 248 U/L (26-192); Globulin 2.6 g/dL (1.3-4.6); Glomerular Filtration Rate 26.4 mL/min (90-130); Glucose 317 mg/dL (65-115); Osmolality Calculated 289 mOsm/kg (285-295); Potassium 5.2 mmol/L (3.5-5.1); Sodium 131 mmol/L (136-145); Total Bilirubin 0.4 mg/dL (0.15-1.2)
[2020-09-12 05:26] LABS: Basophils % 0.2 %; Hematocrit 33.1 % (37.0-47.0); Hemoglobin 10.7 g/dL (11.5-15.3); Lymphocytes # 0.6 10^3/uL (0.8-4.8); Lymphocytes % 10.8 %; Mean Corpuscular HGB Conc 32.3 g/dL (30.0-36.0); Mean Corpuscular Hemoglobin 30.1 pg (28.0-34.0); Mean Corpuscular Volume 93.2 fL (81-99); Mean Platelet Volume 10.1 fL (7.4-10.4); Monocytes # 0.1 10^3/uL (0.2-0.9); Monocytes % 1.9 %; Neutrophils # 4.58 10^3/uL (1.8-7.7); Neutrophils % 86.7 %; Nucleated Red Blood Cells % 0 %; Platelet Count 163 10^3/cmm (130-400); Red Blood Count 3.55 10^6/uL (4.1-5.3); Red Cell Distribution Width 12.6 % (12.1-15.1); White Blood Count 5.3 10^3/uL (4.0-10.0)
[2020-09-12 05:50] LABS: Anion Gap 16.1 (5-19); Blood Urea Nitrogen 27 mg/dL (8-23); Calcium 9.2 mg/dL (8.5-10.5); Carbon Dioxide 20 mmol/L (22-29); Chloride 102 mmol/L (98-107); Glucose 381 mg/dL (65-115); Magnesium 1.7 mg/dL (1.7-2.3); Osmolality Calculated 297 mOsm/kg (285-295); Potassium 5.1 mmol/L (3.5-5.1); Sodium 133 mmol/L (136-145)
[2020-09-12 06:49] LABS: Glucose Point of Care 337 mg/dL (70-110)
[2020-09-12 07:27] LABS: Creatine Phosphokinase 190 U/L (26-192); Phosphorus 4.8 mg/dL (2.5-4.5)
--- NOTE | 2020-09-12 07:59 | PM.PN ---
Subjective Subjective: Interval history: feels well, anxious for discharge. Medications: Reviewed: Yes Vitals/I&O/Wt Last Vital Signs Temp 98.2 F 09/12/20 07:58 Pulse 86 09/12/20 07:58 Resp 18 09/12/20 07:58 BP 133/76 09/12/20 07:58 Pulse Ox 94 09/12/20 07:58 09/11/20 09/12/20 09/12/20 22:59 06:59 14:59 Intake Total 1000 / 2240 Balance 1000 / 1640 Weight last 48 hrs Weight 86.183 kg Weight 86.183 kg Physical Exam Const: COMMON NORMALS: no acute distress Data : 09/12/20 05:00 09/12/20 05:00 Micro: Microbiology 09/12/20 05:05 Blood Culture - Preliminary Blood SPECIMEN COLLECTED 09/12/20 05:00 Blood Culture - Preliminary Blood SPECIMEN COLLECTED US: Radiologist's impression: Right kidney: 10.0 cm x 4.9 cm x 5.1 cm. Normal echogenicity with no hydronephrosis or mass. Left kidney: 10.2 cm x 3.5 cm x 4.4 cm. Normal echogenicity with no hydronephrosis or mass. A&P Additional A&P Information 1. Acute kidney injury likely due to combination TMP/MZ, COX2 inhibitor and ARB - improving, good urine output 2. Hyperkalemia - resolved 3. Hyponatremia - improving 4. Metabolic acidosis - improving 5. Poorly controlled diabetes Recommend: No evidence of interstitial nephritis, can discontinue steroids. Stop IVF. Do not resume ARB, NSAIDs, Bactrim I spoke with Sarah about need to get diabetes under control. She needs close outpatient follow-up, labs next week. Attestations Medical Necessity Statement*: per primary service Time Spent in Patient Care: 16 - 35 minutes Coding Level of Care Code Acute Flat Spring Assembler for Nadeem Mckeon
[2020-09-12] MEDS: multivitamin therapeutic Tablet 1 TAB PO (08:33)
[2020-09-12] MEDS: famotidine 20 mg Tablet PO (08:33)
--- NOTE | 2020-09-12 09:13 | P.PN_ITS ---
Subjective Subjective: Interval history: Noted improvement in renal function, normalized K, stable Hg. Afebrile overnight, hemodynamically stable. Accucheks noted. Ambulating much better, very eager to go home, rash has improved significantly. Reports good appetite and urine output. Medications: Reviewed: Yes Medication Review Details: Active Medications Generic Name Dose Route Start Last Admin Trade Name Freq PRN Reason Stop Dose Admin Acetaminophen 650 mg 09/10/20 19:32 Acetaminophen 32 5 Mg Tablet PO Q6H PRN Mild/Mod Pain Or Temp >/= 101 Dextrose 25 ml 09/10/20 19:32 Dextrose 50% Syr bridgette 50 Ml IVP ONCE PRN hypoglycemia prot ocol Protocol Dextrose 50 ml 09/10/20 19:32 Dextrose 50% Syr bridgette 50 Ml IVP PRN PRN hypoglycemia prot ocol Protocol Diphenhydramine HC l 50 mg 09/11/20 14:25 09/11/20 18:21 Diphenhydramine 25 Mg Capsule PO 50 mg Q6H PRN Administration ITCHING Famotidine 20 mg 09/11/20 18:00 09/12/20 08:33 Famotidine 20 Mg Tablet PO 20 mg BID PRATIBHA Administration Glucagon 1 mg 09/10/20 19:32 Glucagon 1 Mg/Ml Inj 1 Ml IM ONCE PRN Adult Acute Hypog lycemia Prot. Protocol Dextrose 500 mls @ 100 mls /hr 09/10/20 19:32 D5w IV ONCE PRN Adult Acute Hypog lycemia Prot Protocol Sodium Bicarbonate 75 meq/ 1,000 mls @ 125 m ls/hr 09/11/20 16:00 09/12/20 03:09 Sodium Chloride IV 125 mls/hr .Q8H PRATIBHA Administration Insulin Aspart 0 unit 09/10/20 19:32 09/12/20 08:33 Insulin Aspart 1 00 Unit/1 Ml SUBCUT 10 unit WM&BEDTIME PRATIBHA Administration Protocol Insulin Glargine 10 unit 09/11/20 21:00 09/11/20 21:01 Insulin Glargine 100 Units/1 Ml SUBCUT 10 unit BEDTIME PRATIBHA Administration Lanolin 1 applic 09/11/20 17:07 09/11/20 18:20 Lanolin Oint 7 G m TOPICAL 1 applic PRN PRN Administration DRYNESS Methylprednisolone Sodium Succinate 40 mg 09/11/20 14:30 09/12/20 03:18 Methylprednisolo ne Sod Succ 40 Mg/ Ml Inj IVP 40 mg Q6H PRATIBHA Administration Morphine Sulfate 2 mg 09/10/20 19:32 Morphine 4 Mg/Ml Sdv 1 Ml IVP Q4H PRN SEVERE PAIN Multivitamins Ther apeutic 1 tab 09/11/20 09:00 09/12/20 08:33 Multivitamin The rapeutic Tablet PO 1 tab DAILY@0900 PRATIBHA Administration Ondansetron HCl 4 mg 09/10/20 19:32 Ondansetron 2 Mg /Ml Sdv 2 Ml IVP Q8H PRN vomiting, or N/V if npo cephalexin [From Keflex] Allergy (Verified 09/10/20 10:23) ALGY-Rash metoprolol Allergy (Verified 09/11/20 16:03) ALGY-Hives Penicillins Allergy (Verified 09/10/20 10:23) ALGY-Rash Vitals/I&O/Wt Last Vital Signs Temp 98.2 F 09/12/20 07:58 Pulse 86 09/12/20 07:58 Resp 18 09/12/20 07:58 BP 133/76 09/12/20 07:58 Pulse Ox 94 09/12/20 07:58 09/11/20 09/12/20 09/12/20 22:59 06:59 14:59 Intake Total 1000 / 2240 140 / 140 Balance 1000 / 1640 140 / 140 Weight last 48 hrs Weight 86.183 kg Weight 86.183 kg Physical Exam Const: COMMON NORMALS: no acute distress, patient oriented x3 and alert GENERAL APPEARANCE: cooperative and comfortable NUTRITIONAL APPEARANCE: obese ORIENTATION/CONSCIOUSNESS: Yes awake HENMT: COMMON NORMALS: normocephalic, atraumatic, hearing grossly normal bi laterally and moist oral mucous membranes HEAD & SCALP: normocephalic and atraumatic Eye: COMMON NORMALS: Equal, round and reactive pupils present, EOMs intact bilaterally and conjunctivae normal CONJUNCTIVA: Yes conjunctivae normal PUPIL: Yes Equal, round and reactive pupils present Neck/C-Spine: COMMON NORMALS: full ROM GENERAL: Yes normal visual inspection and Yes trachea midline Resp: COMMON NORMALS: normal respiratory effort, No retractions, No use of accessory muscles and clear to auscultation bilaterally EFFORT & INSPECTION: Yes able to speak in complete sentences, Yes symmetric chest movement and No tachypneic AUSCULTATION: clear to auscultation bilaterally OTHER: -on RA Cardio: COMMON NORMALS: regular rate, regular rhythm, S1 normal heart sound present, S2 normal heart sound present and No murmurs present (Cardio) RATE: regular rate RHYTHM: regular rhythm HEART SOUNDS: S1 normal heart sound present and S2 normal heart sound present GI: COMMON NORMALS: Normal to inspection, nondistended, normoactive bowel sounds present, Soft to palpation and non-tender INSPECTION: Yes central obesity PALPATION: Yes Soft to palpation Extremity: COMMON NORMALS: normal to inspection, full ROM and no clubbing, cyanosis or edema; negative for no pedal edema Neuro: COMMON NORMALS: patient oriented x3, moves all extremities, no focal motor deficits, no sensory deficits noted and gait normal SENSORIUM/ORIENTATION: Yes alert Psych: COMMON NORMALS: mental status grossly normal, Normal thought process present, cooperative, normal affect and speech normal SPEECH: Yes normal speech THOUGHT PROCESS: Normal thought process present Skin: COMMON NORMALS: no jaundice, no petechiae and no mottling OTHER: - generalized urticaria, pruritic, significantly improved Data : 09/12/20 05:00 09/12/20 05:00 Micro: Microbiology 09/12/20 05:05 Blood Culture - Preliminary Blood SPECIMEN COLLECTED 09/12/20 05:00 Blood Culture - Preliminary Blood SPECIMEN COLLECTED A&P Assessment and plan (1) Acute hyperkalemia: -initial K-7.7; now normalized with medical management including IVF -continue to monitor -ECG reviewed; no apparent T wave changes, QRS wnl -telemetry monitoring -Nephrology consult appreciated Status: Acute (2) LULA (acute kidney injury): -no comparison labs available so unclear baseline -suspect that this is medication induced given timeline -continue to monitor renal function -IVF hydration -continue to monitor urine output closely -avoid nephrotoxins, hold NSAIDs, oral hypoglycemics, diuretics, ARB, Bactrim (has been taking this x 1 week) -Mg-1.7, Ph-4.8 -mild rhabdomyolysis; CPK normalized (190) -renal US with no noted hydronephrosis Status: Acute (3) Non-insulin dependent diabetes mellitus: -A1c-10.1; poorly controlled -Accucheks, hypoglycemia precautions, ISS; Lantus -consistent carb diet as tolerated Status: Chronic (4) HTN (hypertension): -continue to monitor vital signs -continue to hold ARB -low dose BB due to noted tachycardia discontinued due to possible allergic reaction Status: Chronic Qualifiers: Hypertension type: essential hypertension Qualified Code(s): I10 - Essential (primary) hypertension (5) Dyslipidemia: -can resume statin Status: Chronic Additional A&P Information -Morbid obesity: BMI-31 kg/m2 -acute allergic reaction; suspicion for reaction to BB (new medication), less likely to be food. On steroids, famotidine, benadryl. No airway compromise at this time -DVT ppx not needed as low risk -up with assist -Dispo: home -Code status: FULL code Attestations Medical Necessity Statement*: Discharge today Time Spent in Patient Care: 16 - 35 minutes (>than 50% of time spent in counselling and/or direct pt care on unit) . Coding Level of Care Code Acute Registered Associate for Chg Fwd Exam Comprehensive Diagnoses Acute hyperkalemia E87.5 LULA (acute kidney injury) N17.9 Non-insulin dependent diabetes mellitus HTN (hypertension) I10 Hypertension type: essential hypertension Dyslipidemia E78.5
[2020-09-12 10:32] LABS: Glucose Point of Care 415 mg/dL (70-110)
--- NOTE | 2020-09-12 12:58 | PC.CHAP ---
Pastoral Care Encounter/Spiritual Assessment Type of Contact [] Declined type rolling machine operator visit [] Patient/Family/Request visit [] Outpatient visit [xx] Follow-up visit [] Physician referral [] Code/Alert [xx] Routine visit [] Staff referral [] Actively dying [] Patient sleeping [] Family support [] [] Out of room [] Palliative care [] [] Receiving care in room [] Pre-surgical visit [] Trauma [] Long length of stay [] ICU visit [] Other: Relational/Emotional Strength [xx] Patient feels connected with others/family/visitors/staff [] Distress [] Loneliness/isolation [] Abandonment Spirituality of Patient [xx] Person of [place] [xx] Attends Gnosticism of their [place] [xx] Believes in Prayer [xx] Reads Bible or Taoism materials [] There are Spiritual issues to be addressed Junior Recruiter Interventions [xx] Prayer [xx] Active listening [xx] Non-anxious presence [] Spiritual/emotional support [] Crisis/trauma care [] Spiritual counseling [] Bereavement support [] Provided bereavement packet [] Provided Bible/devotional materials [] Provided toy/stuffed animal, coloring book to patient or family member [] Provided Communion [] Anointing/[place] [] Salvation [xx] Completed spiritual assessment [] Other: Impact on Illness or Injury [] Angry [] Fearful [] Anxious [] Often cries [] Exhaustion [] Unable to work [] Unable to attend episcopalian [] Unable to walk/stand [] Unable to read [] Unable to drive [] Unable to eat/drink [] Unable to sleep [] Unable to be with family [] Patient intubated [] Other: Summary Catherine requested additional type rolling machine operator visit. Junior Recruiter acquainted with niece so visited and prayed for both patient and niece's families. Pt requested special and continued prayer for her physical needs and that she be able to go home soon. Time spent with patient 20 minutes
--- NOTE | 2020-09-12 15:37 | P.DS_ITS ---
Discharge Providers Date of Admission: 09/10/20 15:00 Date of Discharge: September 12, 2020 Attending Provider at Admission: Mireya Lozano MD Attending Provider at Discharge: Mireya Lozano MD Consults: Nephrology Primary Care Provider: Dr. Altman Diagnoses at Discharge Discharge Diagnosis (1) Acute hyperkalemia: Status: Resolved (2) LULA (acute kidney injury): Status: Acute Permanent problem details: -no comparison labs available so unclear baseline -suspect that this is medication induced given timeline -continue to monitor renal function -IVF hydration -continue to monitor urine output closely -avoid nephrotoxins, hold NSAIDs, oral hypoglycemics, diuretics, ARB, Bactrim (has been taking this x 1 week) -Mg-1.7, Ph-4.8 -mild rhabdomyolysis; CPK normalized (190) -renal US with no noted hydronephrosis (3) Non-insulin dependent diabetes mellitus: Status: Chronic Permanent problem details: -A1c-10.1; poorly controlled -Accucheks, hypoglycemia precautions, ISS; Lantus -consistent carb diet as tolerated (4) HTN (hypertension): Status: Chronic Qualifiers: Hypertension type: essential hypertension Qualified Code(s): I10 - Essential (primary) hypertension (5) Dyslipidemia: Status: Chronic Permanent problem details: -continue statin Other Information Additional DC diagnoses/information: -Morbid obesity: BMI-31 kg/m2 -acute allergic reaction; suspicion for reaction to BB (new medication), less likely to be food. On steroids, famotidine, benadryl. No airway compromise at this time. Improved Reason for Visit Reason for Visit: weakness, abnormal labs Hospital Course Hospital Course Patient was admitted to the medical surgical floor and started on IV fluid hydration secondary to noted acute renal impairment and acute hyperkalemia. Despite medical management including IV fluid hydration, calcium gluconate, albuterol, insulin, dextrose, potassium remained high and renal function remained impaired. Neurotoxic medications were held including allopurinol, glimepiride, losartan, meloxicam, Bactrim. Nephrology was consulted and made some adjustments to her IV fluids with noted improvement in her renal function and normalization in her potassium. During the course of her hospital stay she developed an acute allergic reaction presumably to metoprolol which was a new medication for her, noted improvement with steroids, Benadryl and Pepcid as well as discontinuation of medication. She is noted to be a poorly controlled diabetic with an A1c of 10, and she was covered with insulin during her hospital stay. She is quite eager to be discharged home and has been counseled extensively on need to seek medical attention immediately should any of her symptoms worsen, need to closely monitor her blood glucose, introduction of insulin therapy, need for close follow-up with her primary care provider for repeat labs on Tuesday; I have spoken to Dr. Altman and updated him ac cordingly. Physical Exam Const: COMMON NORMALS: no acute distress, patient oriented x3 and alert GENERAL APPEARANCE: cooperative and comfortable NUTRITIONAL APPEARANCE: obese ORIENTATION/CONSCIOUSNESS: Yes awake HENMT: COMMON NORMALS: normocephalic, atraumatic, hearing grossly normal bilaterally and moist oral mucous membranes HEAD & SCALP: normocephalic and atraumatic Eye: COMMON NORMALS: Equal, round and reactive pupils present, EOMs intact bilaterally and conjunctivae normal CONJUNCTIVA: Yes conjunctivae normal PUPIL: Yes Equal, round and reactive pupils present Neck/C-Spine: COMMON NORMALS: full ROM GENERAL: Yes normal visual inspectio n and Yes trachea midline Resp: COMMON NORMALS: normal respiratory effort, No retractions, No use of accessory muscles and clear to auscultation bilaterally EFFORT & INSPECTION: Yes able to speak in complete sentences, Yes symmetric chest movement and No tachypneic AUSCULTATION: clear to auscultation bilaterally OTHER: -on RA Cardio: COMMON NORMALS: regular rate, regular rhythm, S1 normal heart sound present, S2 normal heart sound present and No murmurs present (Cardio) RATE: regular rate RHYTHM: regular rhythm HEART SOUNDS: S1 normal heart sound present and S2 normal heart sound present GI: COMMON NORMALS: Normal to inspection, nondistended, normoactive bowel sounds present, Soft to palpation and non-tender INSPECTION: Yes central obesity PALPATION: Yes Soft to palpation Extremity: COMMON NORMALS: normal to inspection, full ROM and no clubbing, cyanosis or edema; negative for no pedal edema Neuro: COMMON NORMALS: patient oriented x3, moves all extremities, no focal motor deficits, no sensory deficits noted and gait normal SENSORIUM/ORIENTATION: Yes alert Psych: COMMON NORMALS: mental status grossly normal, Normal thought process present, cooperative, normal affect and speech normal SPEECH: Yes normal speech THOUGHT PROCESS: Normal thought process present Skin: COMMON NORMALS: no jaundice, no petechiae and no mottling OTHER: - generalized urticaria, pruritic, significantly improved Discharge Data Data Completed and Pending: Completed Studies During Hospitalization Category Date Time Status XR chest 1V lena ble [id number] Routine Exams 09/11/20 15:55 Completed US renal BI* [id number] Stat Ultrasound 09/11/20 15:48 Completed Pending at discharge Category Date Time Status DONNA Screen w/ Ref luke Routine Lab 09/11/20 15:52 Received Anti Double Stran ded DNA AB Routine Lab 09/11/20 15:52 Received Anti-Neutrophil C ytoplasmic AB Rout ine Lab 09/11/20 15:52 Received BMP [Basic Metabo lic Panel] Stat Lab 09/12/20 12:25 Ordered Basic Metabolic P dionicio AM LABS Lab 09/13/20 04:00 Ordered Blood Culture Sta t Lab 09/11/20 15:47 Results Phosphorus AM LAB S Lab 09/13/20 04:00 Ordered Phosphorus AM LAB S Lab 09/14/20 04:00 Ordered Urinalysis and Mi croscopic Stat Lab 09/11/20 15:47 Uncollected Urine Random Lyte s Routine Lab 09/11/20 15:47 Uncollected Urine Random Sodi um Routine Lab 09/11/20 15:47 Uncollected Labs from last 24 hours 09/12/20 09/12/20 09/12/20 10:13 06:46 05:00 WBC RBC Hgb Hct MCV MCH MCHC RDW Plt Count MPV Neut % (Auto) Lymph % (Auto) [place] % (Auto) Eos % (Auto) Baso % (Auto) Neut # (Auto) Lymph # (Auto) [place] # (Auto) Eos # (Auto) Baso # (Auto) Nucleated RBC % (a uto) Nucleated RBCs # Sodium 133 L Potassium 5.1 Chloride 102 Carbon Dioxide 20 L Anion Gap 16.1 BUN 27 H Creatinine 1.7 H GFR Calculation 30.0 L Glucose 381 H POC Glucose 415 H 337 H Calculated Osmolal ity 297 H Uric Acid Calcium 9.2 Phosphorus Magnesium 1.7 Total Bilirubin AST ALT Alkaline Phosphata se Creatine Kinase Total Protein Albumin Globulin DONNA Screen Anti-ds DNA IgG Ab Complement C3 Complement C4 Mitochondrial DNA Scrn Ref Test Comments 09/12/20 09/12/20 09/12/20 05:00 05:00 05:00 WBC 5.3 RBC 3.55 L Hgb 10.7 L Hct 33.1 L MCV 93.2 MCH 30.1 MCHC 32.3 RDW 12.6 Plt Count 163 MPV 10.1 Neut % (Auto) 86.7 Lymph % (Auto) 10.8 Laurel % (Auto) 1.9 Eos % (Auto) 0.0 Baso % (Auto) 0.2 Neut # (Auto) 4.58 Lymph # (Auto) 0.6 L [place] # (Auto) 0.1 L Eos # (Auto) 0.0 Baso # (Auto) 0.0 Nucleated RBC % (a uto) 0 Nucleated RBCs # 0.0 Sodium Potassium Chloride Carbon Dioxide Anion Gap BUN Creatinine GFR Calculation Glucose POC Glucose Calculated Osmolal ity Uric Acid Calcium Phosphorus 4.8 H Magnesium Total Bilirubin AST ALT Alkaline Phosphata se Creatine Kinase 190 Total Protein Albumin Globulin DONNA Screen Anti-ds DNA IgG Ab Complement C3 Complement C4 Mitochondrial DNA Scrn Ref Test Comments 09/12/20 09/12/20 09/12/20 05:00 05:00 05:00 WBC RBC Hgb Hct MCV MCH MCHC RDW Plt Count MPV Neut % (Auto) Lymph % (Auto) [place] % (Auto) Eos % (Auto) Baso % (Auto) Neut # (Auto) Lymph # (Auto) [place] # (Auto) Eos # (Auto) Baso # (Auto) Nucleated RBC % (a uto) Nucleated RBCs # Sodium Potassium Chloride Carbon Dioxide Anion Gap BUN Creatinine GFR Calculation Glucose POC Glucose Calculated Osmolal ity Uric Acid Calcium Phosphorus Magnesium Total Bilirubin AST ALT Alkaline Phosphata se Creatine Kinase Total Protein Albumin Globulin DONNA Screen Pending Anti-ds DNA IgG Ab Pending Complement C3 Complement C4 Mitochondrial DNA Scrn Pending Ref Test Comments Pending 09/12/20 09/12/20 09/11/20 00:33 00:33 20:46 WBC RBC Hgb Hct MCV MCH MCHC RDW Plt Count MPV Neut % (Auto) Lymph % (Auto) [place] % (Auto) Eos % (Auto) Baso % (Auto) Neut # (Auto) Lymph # (Auto) [place] # (Auto) Eos # (Auto) Baso # (Auto) Nucleated RBC % (a uto) Nucleated RBCs # Sodium Cancelled 131 L Potassium Cancelled 5.2 H Chloride Cancelled 101 Carbon Dioxide Cancelled 18 L Anion Gap Cancelled 17.2 BUN Cancelled 27 H Creatinine Cancelled 1.9 H GFR Calculation Cancelled 26.4 L Glucose Cancelled 317 H POC Glucose 305 H Calculated Osmolal ity Cancelled 289 Uric Acid Calcium Cancelled 9.5 Phosphorus Magnesium Total Bilirubin Cancelled 0.4 AST Cancelled 27 ALT Cancelled 28 Alkaline Phosphata se Cancelled 93 Creatine Kinase 248 H Total Protein Cancelled 6.0 L Albumin Cancelled 3.4 L Globulin Cancelled 2.6 DONNA Screen Anti-ds DNA IgG Ab Complement C3 Complement C4 Mitochondrial DNA Scrn Ref Test Comments 09/11/20 09/11/20 09/11/20 17:08 14:15 14:15 WBC RBC Hgb Hct MCV MCH MCHC RDW Plt Count MPV Neut % (Auto) Lymph % (Auto) [place] % (Auto) Eos % (Auto) Baso % (Auto) Neut # (Auto) Lymph # (Auto) [place] # (Auto) Eos # (Auto) Baso # (Auto) Nucleated RBC % (a uto) Nucleated RBCs # Sodium Potassium Chloride Carbon Dioxide Anion Gap BUN Creatinine GFR Calculation Glucose POC Glucose 203 H Calculated Osmolal ity Uric Acid 3.8 Calcium Phosphorus Magnesium Total Bilirubin AST ALT Alkaline Phosphata se Creatine Kinase Total Protein Albumin Globulin DONNA Screen Anti-ds DNA IgG Ab Complement C3 115 Complement C4 45 H Mitochondrial DNA Scrn Ref Test Comments Vitals: Last Vital Signs Temp 97.6 F 09/12/20 11:05 Pulse 88 09/12/20 14:00 Resp 16 09/12/20 11:05 BP 149/78 09/12/20 11:05 Pulse Ox 97 09/12/20 11:05 Discharge Plan Discharge Patient Disposition: Home Condition: Stable Prescriptions: New Lantus U-100 Insulin 100 unit/mL Solution 20 unit SUBCUT BEDTIME Qty: 10 RF: 0 Novolog U-100 Insulin aspart 100 unit/mL Solution 5 unit SUBCUT .wm Qty: 10 RF: 0 Medrol (Kartik) 4 mg tablets,dose pack See Rx Instructions .ROUTE .COMPLEX Qty: 21 RF: 0 famotidine 20 mg Tablet 20 mg PO BID Qty: 30 RF: 0 diphenhydramine HCl 25 mg Capsule 25 mg PO Q6H PRN (Reason: Itching) Qty: 30 RF: 0 Continued cetirizine 10 mg tablet 10 mg PO DAILY@0900 RF: 0 atorvastatin 10 mg tablet 10 mg PO DAILY@2099 RF: 0 Multi-Vitamins Tablet 1 tab PO DAILY@899 RF: 0 coQ10 (ubiquinol) 200 mg Capsule 200 mg PO DAILY@899 RF: 0 Held glimepiride 2 mg tablet 2 mg PO DAILY@2099 RF: 0 Hold Instructions: Please hold until follow up with PCP meloxicam 7.5 mg tablet 7.5 mg PO DAILY@899 RF: 0 Hold Instructions: Please hold until follow up with PCP allopurinol 300 mg tablet 300 mg PO DAILY@899 RF: 0 Hold Instructions: Please hold off on resuming medication until follow up with PCP losartan 100 mg tablet 100 mg PO DAILY@2099 RF: 0 Hold Instructions: Hold until follow up with PCP Discontinued sulfamethoxazole-trimethoprim 800-160 mg tablet 1 tab PO BID@899,2099 RF: 0 Discharge Orders: Discharge Order (Routine); Ordered 09/12/20 Ordered By: Mireya Lozano Referrals: Lennox Altman DO [Staff Physician] - 09/15/20 8:00 am Discharge Diet: Advance as tolerated and Diabetic Discharge Activity: Resume usual activity Activity Restrictions/Additional Instructions: -Please seek medical attention immediately if experiencing worsening rash, shortness of breath, chest pain/tightness, difficulty swallowing, difficulty urinating -Please monitor your blood glucose at home and keep a log for review with your primary care physician Discharge Attestations Time Spent in Discharge Care*: greater than 30 min Specific Discharge Activities: educating patient, educating and/or supporting family/caregiver, discussing with pcp/other providers, documenting/other paperwork and evaluating patient/reviewing data Status at Discharge: Cognitive status at discharge: cognitively intact , Behavioral status at discharge: cooperative and independent in ADL's , Functional status at discharge: independent ambulation Overall status at discharge: patient is progressing back to baseline Quality Metrics Clinical Quality Measures During this hospital stay, did patient experience: None Coding Level of Care Code Acute Cut To Length Operator for Nadeem Mckeon Diagnoses Acute hyperkalemia E87.5 LULA (acute kidney injury) N17.9 Non-insulin dependent diabetes mellitus HTN (hypertension) I10 Hypertension type: essential hypertension Dyslipidemia E78.5
[2020-09-12 16:54] LABS: Blood Urea Nitrogen 36 mg/dL (8-23); Calcium 9.9 mg/dL (8.5-10.5); Carbon Dioxide 17 mmol/L (22-29); Chloride 100 mmol/L (98-107); Glucose 430 mg/dL (65-115); Osmolality Calculated 301 mOsm/kg (285-295); Sodium 132 mmol/L (136-145)
[2020-09-12 16:56] LABS: Anion Gap 20.2 (5-19); Potassium 5.2 mmol/L (3.5-5.1)
[2020-09-12 17:26] LABS: Glucose Point of Care 417 mg/dL (70-110)
[2020-09-15 14:43] LABS: Anti-Double Strand DNA AB <1 IU/mL
[2020-09-15 15:42] LABS: Anti-Nuclear Antibody Screen NEGATIVE (NEGATIVE)
== END 2020-09-12 17:34 | disposition home or self-care (01) | DRG 641 ==
LOC: ER 15:03 → MEDSURG 17:48
PROVIDERS: Internal Medicine; Internal Medicine Nephrology; Admitting Provider Family Medicine; Emergency Provider Family Medicine; Visit Provider Family Medicine
DX: E87.5 Hyperkalemia (principal); N17.8 Other acute kidney failure; M62.82 Rhabdomyolysis; N14.1 Nephropathy induced by other drugs, medicaments and biological substances; T39.395A Adverse effect of other nonsteroidal anti-inflammatory drugs [NSAID], initial encounter; T46.5X5A Adverse effect of other antihypertensive drugs, initial encounter; T36.8X5A Adverse effect of other systemic antibiotics, initial encounter; E87.1 Hypo-osmolality and hyponatremia; E78.5 Hyperlipidemia, unspecified; M10.9 Gout, unspecified; I10 Essential (primary) hypertension; E11.65 Type 2 diabetes mellitus with hyperglycemia; E66.01 Morbid (severe) obesity due to excess calories; Z68.31 Body mass index [BMI] 31.0-31.9, adult; L27.0 Generalized skin eruption due to drugs and medicaments taken internally; T44.7X5A Adverse effect of beta-adrenoreceptor antagonists, initial encounter; M19.90 Unspecified osteoarthritis, unspecified site; E87.2 Acidosis
CPT/HCPCS: 12345; 36415; 36416; 36569; 71045; 76770; 80048; 80053; 81003; 82550; 82962; 83036; 83516; 83735; 84100; 84443; 84550; 85025; 86038; 86160; 86225; 87040; 93005; 94640; 96372; 99283; J0610; J1815 ×2; J1940; J2920; J3475; J7030; J7611

== ENCOUNTER 2020-09-18 10:31 | Emergency (ER) | payer MEDICARE, SELFPAY ==
[2020-09-18 10:32] VITALS: BP 130/77; PULSE 91; RESP 18; TEMP 36.3; O2SAT 100; BMI 30.7
--- NOTE | 2020-09-18 10:56 | XR_ITS ---
WS: [id number] Portable AP upright chest, 09/18/2020 Clinical Data: dizziness/syncope Comparison: Portable chest, 09/11/2020. Findings: No nodules, masses or effusions are seen. The heart is normal. The pulmonary vascularity is not increased. No pneumonia or pneumothorax is seen. XR/XR chest 1V portable [id number] Impression: Negative chest.
--- NOTE | 2020-09-18 10:56 | CT_ITS ---
WS: [id number] CT HEAD TECHNIQUE: Noncontrast CT of the head obtained from the skullbase to the vertex. CLINICAL INFORMATION: trauma COMPARISON: None. DLP: 739.[address] scans at [facility] use at least one of these dose optimization techniques: automat ed exposure control; mA and/or kV adjustment per patient size (includes targeted exams where dose is matched to clinical indication); or iterative reconstruction. FINDINGS: No evidence of intracranial hemorrhage or mass effect. Ventricular system and basal cisterns are campbell nt. Mild small vessel changes with mild parenchymal volume loss. No extra-axial fluid collections. No evidence of mass or mass effect. Normal martinez-white differentiation. Incidental small choroidal fissu re cyst. Paranasal sinuses and mastoid air cells are well aerated. .Normal visualized soft tissues. CT/CT head wo con* [id number] IMPRESSION: 1. No evidence of intracranial hemorrhage or mass effect. 2. Mild small vessel changes. Mild parenchymal volume loss. 3. No acute intracranial findings.
--- NOTE | 2020-09-18 10:56 | CT_ITS ---
WS: [id number] CT CERVICAL TRAUMA TECHNIQUE: Noncontrast CT of the cervical spine with coronal and sagittal reformatted images. CLINICAL INFORMATION: fall COMPARISON: None. DLP: 562.[address] scans at [facility] use at least one of these dose optimization techniques: automat ed exposure control; mA and/or kV adjustment per patient size (includes targeted exams where dose is matched to clinical indication); or iterative reconstruction. FINDINGS: Straightening of the normal cervical lordosis. Mild spondylitic changes. Disc space narrowing worse a t C5-6 with disc osteophyte complex. Normal craniocervical junction. Normal C1-C2 articulation. Dens is normal in appearance. Normal occipital condyles. No high-grade spinal canal narrowing. Normal C1 r ing. No evidence of acute fracture or dislocation. Normal prevertebral soft tissues. Mastoids air cells are well aerated. CT/CT cervical spin wo con* [id number] IMPRESSION: No evidence of acute fracture or dislocation.
--- NOTE | 2020-09-18 10:57 | ECG_ITS ---
[facility] Test Date: 2020-09-18 Pat Name: Sarah Beatty Department: Room: Gender: Female Acid Conditioner: : 1955 Requested By: Geena Peters Order Number: [id number] Reading MD: PALMIRA OLIVAREZ Measurements Intervals [place] Rate: 88 P: 56 IA: 147 QRS: -38 QRSD: 85 T: 31 QT: 356 QTc: 432 Interpretive Statements SINUS RHYTHM LEFT AXIS DEVIATION [QRS AXIS < -30] PATTERN CONSISTENT WITH PULMONARY DISEASE Compared to ECG 09/10/2020 12:01:25 Left-axis deviation now present Incomplete right bundle-branch block no longer present Myocardial infarct finding no longer present T-wave abnormality no longer present Electronically Signed On 09-18-2020 20:28:29 HIP HOP DANCER by PALMIRA OLIVAREZ [email or web address] the [employer]/[id number]
--- NOTE | 2020-09-18 10:57 | ED_ITS ---
HPI - Syncope General: Chief Complaint: Syncope Stated Complaint: SYNCOPE/ DIZZINESS/ VERTIGO Time Seen by Provider: 09/18/20 10:33 Source: patient Limitations: no limitations History of Present Illness: HPI narrative: Patient is a 65-year-old female with PMH significant for uncontrolled DM2, HTN, hyperlipidemia, and gout who presents to ED today with a complaint of dizziness and syncopal episode. Lorrie corrigan tells me yesterday she began feeling slightly dizzy and had a headache. She tells me this morning while sitting on the toilet she became dizzy and fell off the stool and struck her head. She believes that she did pass out briefly. Patient states she was able to get up on her own but then became dizzy and fell again. She states she was on the floor for approximately 10 minutes before she was able to get up on her own and call a family member for help. Patient is complaining currently of a headache and neck pain. She denies chest pain or shortness of breath. Patient was discharged from the hospital 5 days ago. She was admitted for hyperkalemia and acute kidney injury. MD complaint: loss of consciousness and felt faint Associated symptoms: Reports headache(s) and lightheadedness; Deny abdominal pain, chest pain, fever(s) or nausea Review of Systems Const: Denies: fever(s), chills, body aches, fatigue or malaise Eyes: Denies: change in vision or blurry vision ENMT: Denies: odynophagia Card: Reports: lightheadedness, syncope and pre-syncope; Denies: chest pain, palpitations, irregular heart rhythm, edema, swelling of feet/ankles, dyspnea on exertion, orthopnea or leg pain with exertion Resp: Denies: dyspnea, productive cough or pain on inspiration GI: Denies: abdominal pain, nausea, vomiting, heartburn or diarrhea : Denies: dysuria Musc: Reports: neck pain; Denies: back pain or joint pain Skin/Breast: Denies: rash Neuro: Reports: headache(s) and dizziness FORMERLY [facility], 1928–1983 ED PFSH: Medical History (Updated 09/18/20 @ 14:13 by RUY Carrasquillo) Dyslipidemia -continue statin Gout HTN (hypertension) Non-insulin dependent diabetes mellitus -A1c-10.1; poorly controlled -Accucheks, hypoglycemia precautions, ISS; Lantus -consistent carb diet as tolerated Obesity Surgical History S/P tubal ligation Family History (Updated 09/10/20 @ 15:04 by Mireya Lozano MD) Sister Diabetes Daughter No problems noted. Brother Diabetes Social History (Updated 09/10/20 @ 15:04 by Mireya Lozano MD) Smoking and tobacco status: never smoked Alcohol intake: never Lives independently: Yes Physical Exam Const: COMMON NORMALS: no acute distress, patient oriented x3, no limitations and alert ORIENTATION/CONSCIOUSNESS: Yes awake, Yes oriented to person, Yes oriented to place and Yes oriented to time OTHER: fairly poor historian HENMT: COMMON NORMALS: normocephalic and atraumatic HEAD & SCALP: normocephalic and atraumatic Eye: COMMON NORMALS: Equal, round and reactive pupils present and EOMs intact bilaterally GENERAL EYE: appearance normal, both eyes and all related structures PUPIL: Yes Equal, round and reactive pupils present Neck/C-Spine: COMMON NORMALS: full ROM CERVICAL SPINE: Yes Cervical spine tenderness (mild mid to lower c spine) and No step off deformity Resp: COMMON NORMALS: normal respiratory effort and clear to auscultation bilaterally AUSCULTATION: clear to auscultation bilaterally Cardio: COMMON NORMALS: regular rate and regular rhythm RATE: regular rate RHYTHM: regular rhythm GI: COMMON NORMALS: Normal to inspection, nondistended, normoactive bowel sounds present, Soft to palpation, non-tender, No hepatosplenomegaly present and no masses PALPATION: Yes Soft to palpation and Yes No hepatosplenomegaly present Extremity: COMMON NORMALS: normal to inspection Neuro: TEMITOPE COMA SCALE: document GCS findings [place] coma scale eye opening: Spontaneous [place] coma scale verbal response: Orientated [place] coma scale motor response: Obey commands [place] coma scale total score: 15 COMMON NORMALS: patient oriented x3 SENSORIUM/ORIENTATION: Yes alert, Yes oriented to person, Yes oriented to place and Yes oriented to time Skin: COMMON NORMALS: no rashes or lesions noted GENERAL SKIN EXAM: no rashes or lesions noted Course Vital Signs: Vital signs: Vital Signs Temperature 97.4 F L 09/18/20 10:32 Pulse Rate 93 09/18/20 11:03 Respiratory Rate 18 09/18/20 11:03 Blood Pressure 136/69 09/18/20 11:03 Pulse Oximetry 95 09/18/20 11:03 MDM - Syncope MDM Narrative: Medical decision making narrative: Patient states she is feeling better while here. Her vital signs are stable. She had a successful ambulation trial here. Patient had CT head/cervical spine due to her fall which were negative. Labs showing significant leukocytosis at 23.8. She is not tachycardic, febrile, or hypotensive. Her lactate is normal. Her UA is not overly suspicious for UTI. She has no urinary symptoms. Her CXR is normal. Chemistry panel showing moderate hyponatremia at 129. She does have chronic mild hyponatremia. BUN/Cr today is 50/1.3. BUN is slightly elevated when compared to her last hospital stay but creatinine is much improved. She was given a liter of fluids here. Patient's glucose is 385. She has chronic un controlled diabetes. She admittedly has not been taking her NovoLog as she was confused on the dosing when she was discharged from the hospital. She has no evidence of DKA. I discussed with patient coming into the hospital however patient would like to go home at this time. Recommend she contact primary care for close follow-up. Return to ED precautions given. Lab Data: Labs: Lab Results 09/18/20 09/18/20 09/18/20 Range/Units 10:55 10:55 10:56 WBC 23.8 H (4.0-10.0) 10^3/ uL RBC 5.03 (4.1-5.3) 10^6/u L Hgb 15.2 (11.5-15.3) g/dL Hct 45.2 (37.0-47.0) % MCV 89.9 (81-99) fL MCH 30.2 (28.0-34.0) pg MCHC 33.6 (30.0-36.0) g/dL RDW 12.5 (12.1-15.1) % Plt Count 411 H (130-400) 10^3/c mm MPV 10.1 (7.4-10.4) fL Neut % (Auto) 71.7 % Lymph % (Auto) 12.4 % [place] % (Auto) 8.0 % Eos % (Auto) 1.1 % Baso % (Auto) 0.3 % Neut # (Auto) 17.07 H (1.8-7.7) 10^3/u L Lymph # (Auto) 3.0 (0.8-4.8) 10^3/u L [place] # (Auto) 1.9 H (0.2-0.9) 10^3/u L Eos # (Auto) 0.3 (0.0-0.8) 10^3/u L Baso # (Auto) 0.1 (0.0-0.1) 10^3/u L Nucleated RBC % (a uto) 0 % Nucleated RBCs # 0.0 /100WBC Specimen Type ABG pH (7.35-7.45) ABG pCO2 (35-45) mmHg ABG pO2 (80.0-100.0) mmH g ABG HCO3 (22-26) mmol/L ABG O2 Saturation ABG Base Excess (-2.0-2.0) mmol/ L Viral Test A-a O2 Gradient (5-10) mmHg Hematocrit (37-47) % Hgb O2 Saturation (95-100) % Carboxyhemoglobin (0.4-20.1) %THgb Methemoglobin (0.4-1.5) % Total Hemoglobin (12-16) g/dL Ionized Calcium (1.1-1.4) mmol/L O2 Delivery Device It Technical Architect ID Sodium (136-145) mmol/L Potassium (3.5-5.1) mmol/L Chloride (98-107) mmol/L Carbon Dioxide (22-29) mmol/L Anion Gap (5-19) BUN (8-23) mg/dL Creatinine (0.5-0.9) mg/dL GFR Calculation (90-130) mL/min Glucose (65-115) mg/dL Calculated Osmolal ity (285-295) mOsm/k g Lactic Acid (0.5-2.2) mmol/L Calcium (8.5-10.5) mg/dL Magnesium (1.7-2.3) mg/dL Total Bilirubin (0.15-1.2) mg/dL AST (0-32) U/L ALT (0-33) U/L Alkaline Phosphata se (35-105) IU/L Creatine Kinase 60 (26-192) U/L Troponin T Baselin e (0-10) ng/L Total Protein (6.6-8.7) g/dL Albumin (3.5-5.2) g/dL Globulin (1.3-4.6) g/dL Urine Color (Yellow) Urine Appearance (CLEAR) Urine pH (5-7) Ur Specific Gravit y (1.005-1.030) Urine Protein (Negative) Urine Glucose (UA) (Normal) Urine Ketones (Negative) Urine Blood (Negative) Urine Nitrate (Negative) Urine Bilirubin (Negative) Urine Urobilinogen (Negative) mg/dL Ur Leukocyte Alaina ase (Negative) Urine RBC (0-2) /hpf Urine WBC (0-5) /hpf Ur Squamous Epith Cells (0-5) /hpf Amorphous Sediment Urine Bacteria (NONE) /hpf Urine Opiates Scre en (Negative) ng/mL Ur Barbiturates Sc reen (Negative) ng/mL Ur Phencyclidine S crn (Negative) ng/mL Ur Amphetamines Sc reen (Negative) ng/mL U Benzodiazepines Scrn (Negative) ng/mL Urine Cocaine Scre en (Negative) ng/mL U Marijuana (THC) Screen (Negative) ng/mL Serum Ketones Negative (Negative) 09/18/20 09/18/20 09/18/20 Range/Units 10:56 10:56 12:00 WBC (4.0-10.0) 10^3/ uL RBC (4.1-5.3) 10^6/u L Hgb (11.5-15.3) g/dL Hct (37.0-47.0) % MCV (81-99) fL MCH (28.0-34.0) pg MCHC (30.0-36.0) g/dL RDW (12.1-15.1) % Plt Count (130-400) 10^3/c mm MPV (7.4-10.4) fL Neut % (Auto) % Lymph % (Auto) % [place] % (Auto) % Eos % (Auto) % Baso % (Auto) % Neut # (Auto) (1.8-7.7) 10^3/u L Lymph # (Auto) (0.8-4.8) 10^3/u L [place] # (Auto) (0.2-0.9) 10^3/u L Eos # (Auto) (0.0-0.8) 10^3/u L Baso # (Auto) (0.0-0.1) 10^3/u L Nucleated RBC % (a uto) % Nucleated RBCs # /100WBC Specimen Type Arterial ABG pH 7.41 (7.35-7.45) ABG pCO2 31.9 L (35-45) mmHg ABG pO2 79.4 L (80.0-100.0) mmH g ABG HCO3 19.9 L (22-26) mmol/L ABG O2 Saturation 95.7 ABG Base Excess -3.7 L (-2.0-2.0) mmol/ L Viral Test Pos A-a O2 Gradient 3.6 L (5-10) mmHg Hematocrit 46.1 (37-47) % Hgb O2 Saturation 94.7 L (95-100) % Carboxyhemoglobin 0.6 (0.4-20.1) %THgb Methemoglobin 0.5 (0.4-1.5) % Total Hemoglobin 15.0 (12-16) g/dL Ionized Calcium 1.4 (1.1-1.4) mmol/L O2 Delivery Device Not Reportable It Technical Architect ID monro Sodium 129 L 134.0 (136-145) mmol/L Potassium 4.4 4.4 (3.5-5.1) mmol/L Chloride 93 L (98-107) mmol/L Carbon Dioxide 20 L (22-29) mmol/L Anion Gap 20.4 H (5-19) BUN 50 H (8-23) mg/dL Creatinine 1.3 H (0.5-0.9) mg/dL GFR Calculation 40.9 L (90-130) mL/min Glucose 385 H 372.0 H (65-115) mg/dL Calculated Osmolal ity 297 H (285-295) mOsm/k g Lactic Acid (0.5-2.2) mmol/L Calcium 11.0 H (8.5-10.5) mg/dL Magnesium 1.8 (1.7-2.3) mg/dL Total Bilirubin 0.6 (0.15-1.2) mg/dL AST 28 (0-32) U/L ALT 47 H (0-33) U/L Alkaline Phosphata se 107 H (35-105) IU/L Creatine Kinase (26-192) U/L Troponin T Baselin e 13 H (0-10) ng/L Total Protein 7.1 (6.6-8.7) g/dL Albumin 4.5 (3.5-5.2) g/dL Globulin 2.6 (1.3-4.6) g/dL Urine Color (Yellow) Urine Appearance (CLEAR) Urine pH (5-7) Ur Specific Gravit y (1.005-1.030) Urine Protein (Negative) Urine Glucose (UA) (Normal) Urine Ketones (Negative) Urine Blood (Negative) Urine Nitrate (Negative) Urine Bilirubin (Negative) Urine Urobilinogen (Negative) mg/dL Ur Leukocyte Alaina ase (Negative) Urine RBC (0-2) /hpf Urine WBC (0-5) /hpf Ur Squamous Epith Cells (0-5) /hpf Amorphous Sediment Urine Bacteria (NONE) /hpf Urine Opiates Scre en (Negative) ng/mL Ur Barbiturates Sc reen (Negative) ng/mL Ur Phencyclidine S crn (Negative) ng/mL Ur Amphetamines Sc reen (Negative) ng/mL U Benzodiazepines Scrn (Negative) ng/mL Urine Cocaine Scre en (Negative) ng/mL U Marijuana (THC) Screen (Negative) ng/mL Serum Ketones (Negative) 09/18/20 09/18/20 09/18/20 Range/Units 12:18 13:22 13:22 WBC (4.0-10.0) 10^3/ uL RBC (4.1-5.3) 10^6/u L Hgb (11.5-15.3) g/dL Hct (37.0-47.0) % MCV (81-99) fL MCH (28.0-34.0) pg MCHC (30.0-36.0) g/dL RDW (12.1-15.1) % Plt Count (130-400) 10^3/c mm MPV (7.4-10.4) fL Neut % (Auto) % Lymph % (Auto) % [place] % (Auto) % Eos % (Auto) % Baso % (Auto) % Neut # (Auto) (1.8-7.7) 10^3/u L Lymph # (Auto) (0.8-4.8) 10^3/u L [place] # (Auto) (0.2-0.9) 10^3/u L Eos # (Auto) (0.0-0.8) 10^3/u L Baso # (Auto) (0.0-0.1) 10^3/u L Nucleated RBC % (a uto) % Nucleated RBCs # /100WBC Specimen Type ABG pH (7.35-7.45) ABG pCO2 (35-45) mmHg ABG pO2 (80.0-100.0) mmH g ABG HCO3 (22-26) mmol/L ABG O2 Saturation ABG Base Excess (-2.0-2.0) mmol/ L Viral Test A-a O2 Gradient (5-10) mmHg Hematocrit (37-47) % Hgb O2 Saturation (95-100) % Carboxyhemoglobin (0.4-20.1) %THgb Methemoglobin (0.4-1.5) % Total Hemoglobin (12-16) g/dL Ionized Calcium (1.1-1.4) mmol/L O2 Delivery Device It Technical Architect ID Sodium (136-145) mmol/L Potassium (3.5-5.1) mmol/L Chloride (98-107) mmol/L Carbon Dioxide (22-29) mmol/L Anion Gap (5-19) BUN (8-23) mg/dL Creatinine (0.5-0.9) mg/dL GFR Calculation (90-130) mL/min Glucose (65-115) mg/dL Calculated Osmolal ity (285-295) mOsm/k g Lactic Acid 1.8 (0.5-2.2) mmol/L Calcium (8.5-10.5) mg/dL Magnesium (1.7-2.3) mg/dL Total Bilirubin (0.15-1.2) mg/dL AST (0-32) U/L ALT (0-33) U/L Alkaline Phosphata se (35-105) IU/L Creatine Kinase (26-192) U/L Troponin T Baselin e (0-10) ng/L Total Protein (6.6-8.7) g/dL Albumin (3.5-5.2) g/dL Globulin (1.3-4.6) g/dL Urine Color Yellow (Yellow) Urine Appearance Clear (CLEAR) Urine pH 5 (5-7) Ur Specific Gravit y 1.020 (1.005-1.030) Urine Protein Neg (Negative) Urine Glucose (UA) 4+ H (Normal) Urine Ketones Negative (Negative) Urine Blood Neg (Negative) Urine Nitrate Negative (Negative) Urine Bilirubin Neg (Negative) Urine Urobilinogen Norm (Negative) mg/dL Ur Leukocyte Alaina ase Trace H (Negative) Urine RBC 0-4 H (0-2) /hpf Urine WBC 0-4 H (0-5) /hpf Ur Squamous Epith Cells 0-4 H (0-5) /hpf Amorphous Sediment Not Reportable Urine Bacteria Trace (NONE) /hpf Urine Opiates Scre en Negative (Negative) ng/mL Ur Barbiturates Sc reen Negative (Negative) ng/mL Ur Phencyclidine S crn Negative (Negative) ng/mL Ur Amphetamines Sc reen Negative (Negative) ng/mL U Benzodiazepines Scrn Negative (Negative) ng/mL Urine Cocaine Scre en Negative (Negative) ng/mL U Marijuana (THC) Screen Negative (Negative) ng/mL Serum Ketones (Negative) Imaging Data^: CXR: Radiologist's impression: [address] [address] XRay Report Signed Patient: Sarah Beatty #: [id number] : [id number]#:[id number] Age/Sex: 65 / FADM Date: 09/18/20 Loc: [facility]/Bed: Attending Dr: Ordering Provider/Ordering MD: Geena Peters Date of Service: 09/18/20 Procedure(s): XR chest 1V portable [id number] Accession Number(s): [id number] Report Number: [id number] WS: [id number] Portable AP upright chest, 09/18/2020 Clinical Data: dizziness/syncope Comparison: Portable chest, 09/11/2020. Findings: No nodules, masses or effusions are seen. The heart is normal. The pulmonary vascularity is not increased. No pneumonia or pneumothorax is seen. XR/XR chest 1V portable [id number] Impression: Negative chest. Dictated By:Brigida Monge MD Signed By:Saleem,Brigida N MDSigned Date/Time:09/18/20 1156 DD/ 115 CT Head: Radiologist's impression: [facility] [address] [place] [address]. [place] [address] CT Scan Report Signed Patient: Sarah Beatty #: [id number] : 1955cct#:[id number] Age/Sex: 65 / FADM Date: 09/18/20 Loc: [facility]/Bed: Attending Dr: Ordering Provider/Ordering MD: Geena Peters Date of Service: 09/18/20 Procedure(s): CT head wo con* [id number] Accession Number(s): [id number] Report Number: [id number] WS: [id number] CT HEAD TECHNIQUE: Noncontrast CT of the head obtained from the skullbase to the vertex. CLINICAL INFORMATION: trauma COMPARISON: None. DLP: 739.[address] scans at [facility] use at least one of these dose optimization techniques: automated exposure control; mA and/or kV adjustment per patient size (includes targeted exams where dose is matched to clinical indication); or iterative reconstruction. FINDINGS: No evidence of intracranial hemorrhage or mass effect. Ventricular system and basal cisterns are patent. Mild small vessel changes with mild parenchymal volume loss. No extra-axial fluid collections. No evidence of mass or mass effect. Normal martinez-white differentiation. Incidental small choroidal fissure cyst. Paranasal sinuses and mastoid air cells are well aerated. .Normal visualized soft tissues. CT/CT head wo con* [id number] IMPRESSION: 1. No evidence of intracranial hemorrhage or mass effect. 2. Mild small vessel changes. Mild parenchymal volume loss. 3. No acute intracranial findings. Dictated By:Zay Rogers MD Signed By:Zay Rogers MDSigned Date/Time:09/18/20 1205 DD/ 1159 CT cervical: Radiologist's impression: [facility] [address] [place] [address]. [place] [address] CT Scan Report Signed Patient: Sarah Beatty #: [id number] : 1955cct#:[id number] Age/Sex: 65 / FADM Date: 09/18/20 Loc: [facility]/Bed: Attending Dr: Ordering Provider/Ordering MD: Geena Peters Date of Service: 09/18/20 Procedure(s): CT cervical spin wo con* [id number] Accession Number(s): [id number] Report Number: [id number] WS: [id number] CT CERVICAL TRAUMA TECHNIQUE: Noncontrast CT of the cervical spine with coronal and sagittal reformatted images. CLINICAL INFORMATION: fall COMPARISON: None. DLP: 562.[address] scans at [facility] use at least one of these dose optimization techniques: automated exposure control; mA and/or kV adjustment per patient size (includes targeted exams where dose is matched to clinical ind ication); or iterative reconstruction. FINDINGS: Straightening of the normal cervical lordosis. Mild spondylitic changes. Disc space narrowing worse at C5-6 with disc osteophyte complex. Normal cran iocervical junction. Normal C1-C2 articulation. Dens is normal in appearance. Normal occipital condyles. No high-grade spinal canal narrowing. Normal C1 ring. No evidence of acute fracture or dislocation. Normal prevertebral soft tissues. Mastoids air cells are well aerated. CT/CT cervical spin wo con* [id number] IMPRESSION: No evidence of acute fracture or dislocation. Dictated By:Zay Rogers MD Signed By:Zay Rogers MDSigned Date/Time:09/18/20 1214 DD/ 1206 EKG Data^: EKG 1: EKG interpretation date: 09/18/20 EKG interpretation time: 11:06 Interpretation: Sinus rhythm Rate [address] elevation or depression changes noted EKG 2: EKG interpretation date: 09/18/20 EKG interpretation time: 11:07 Interpretation: Sinus rhythm Rate 88 No acute changes when compared to EKG performed earlier today Discharge Plan Discharge Patient Disposition: Home Clinical Impression: Chronic kidney disease Qualifiers: Chronic kidney disease stage: stage 3 (moderate) Chronic kidney disease stage 3 subtype: stage 3b (GFR 30-44) Qualified Code(s): N18.32 - Chronic kidney disease, stage 3b Leukocytosis Qualifiers: Leukocytosis type: unspecified Qualified Code(s): D72.829 - Elevated white blood cell count, unspecified Uncontrolled diabetes mellitus Qualifiers: Diabetes mellitus type: type 2 Glycemic state: with hyperglycemia Qualified Code(s): E11.65 - Type 2 diabetes mellitus with hyperglycemia Condition: Stable Prescriptions: No Action cetirizine 10 mg tablet 10 mg PO DAILY@0900 RF: 0 atorvastatin 10 mg tablet 10 mg PO DAILY@2100 RF: 0 glimepiride 2 mg tablet 2 mg PO DAILY@2100 RF: 0 Hold Instructions: Please hold until follow up with PCP meloxicam 7.5 mg tablet 7.5 mg PO DAILY@0900 RF: 0 Hold Instructions: Please hold until follow up with PCP allopurinol 300 mg tablet 300 mg PO DAILY@0900 RF: 0 Hold Instructions: Please hold off on resuming medication until follow up with PCP multivitamin Tablet 1 tab PO DAILY@0900 RF: 0 coQ10 (ubiquinol) 200 mg Capsule 200 mg PO DAILY@0900 RF: 0 Lantus U-100 Insulin 100 unit/mL Solution 20 unit SUBCUT BEDTIME Qty: 10 RF: 0 famotidine 20 mg Tablet 20 mg PO BID Qty: 30 RF: 0 diphenhydramine HCl 25 mg Capsule 25 mg PO Q6H PRN (Reason: Itching) Qty: 30 RF: 0 amlodipine 10 mg tablet 10 mg PO DAILY@2200 RF: 0 Discharge Orders: Discharge ED (Routine); Ordered 09/18/20 Ordered By: Geena Peters Referrals: Lennox Altman DO [Referring] - Activity Restrictions/Additional Instructions: As discussed you need to return to the emergency department if dizziness continues or worsens, you continue to feel unsteady, or if you have any further falls. You also need to return for chest pain, shortness of breath, difficulty breathing, painful urination, flank pain, abdominal pain, or any other concerns you may have. As discussed please follow-up with Dr. Altman as soon as possible so he may repeat labs if needed. Coding Level of Care Code ED Pediatric Geneticist for Nadeem Fwgracie Exam Comprehensive
[2020-09-18 11:03] VITALS: BP 136/69; PULSE 93; RESP 18; O2SAT 95
[2020-09-18 11:04] LABS: Basophils # 0.1 10^3/uL (0.0-0.1); Basophils % 0.3 %; Eosinophils # 0.3 10^3/uL (0.0-0.8); Eosinophils % 1.1 %; Hematocrit 45.2 % (37.0-47.0); Hemoglobin 15.2 g/dL (11.5-15.3); Lymphocytes % 12.4 %; Mean Corpuscular HGB Conc 33.6 g/dL (30.0-36.0); Mean Corpuscular Hemoglobin 30.2 pg (28.0-34.0); Mean Corpuscular Volume 89.9 fL (81-99); Mean Platelet Volume 10.1 fL (7.4-10.4); Monocytes # 1.9 10^3/uL (0.2-0.9); Neutrophils # 17.07 10^3/uL (1.8-7.7); Neutrophils % 71.7 %; Nucleated Red Blood Cells % 0 %; Platelet Count 411 10^3/cmm (130-400); Red Blood Count 5.03 10^6/uL (4.1-5.3); Red Cell Distribution Width 12.5 % (12.1-15.1); White Blood Count 23.8 10^3/uL (4.0-10.0)
[2020-09-18 11:33] LABS: Alanine Aminotransferase 47 U/L (0-33); Albumin Level 4.5 g/dL (3.5-5.2); Alkaline Phosphatase 107 IU/L (35-105); Anion Gap 20.4 (5-19); Aspartate Amino Transferase 28 U/L (0-32); Blood Urea Nitrogen 50 mg/dL (8-23); Carbon Dioxide 20 mmol/L (22-29); Chloride 93 mmol/L (98-107); Globulin 2.6 g/dL (1.3-4.6); Glomerular Filtration Rate 40.9 mL/min (90-130); Glucose 385 mg/dL (65-115); Magnesium 1.8 mg/dL (1.7-2.3); Osmolality Calculated 297 mOsm/kg (285-295); Potassium 4.4 mmol/L (3.5-5.1); Sodium 129 mmol/L (136-145); Total Bilirubin 0.6 mg/dL (0.15-1.2); Total Protein 7.1 g/dL (6.6-8.7)
[2020-09-18 11:43] LABS: Slide Review Slide Review Perform
[2020-09-18 11:51] LABS: Troponin(5th) Baseline 13 ng/L (0-10)
[2020-09-18] MEDS: sodium chloride 0.9% 1,000 ML 999 ML IV (12:00)
[2020-09-18 12:03] LABS: Ketone (Acetest) Serum Negative (Negative)
[2020-09-18 12:11] LABS: ABG PCO2 31.9 mmHg (35-45); ABG PH Result 7.41 (7.35-7.45); Alveolar-Arterial Oxygen Gradi 3.6 mmHg (5-10); Arterial Blood Gas Hematocrit 46.1 % (37-47); Base Excess ABG -3.7 mmol/L (-2.0-2.0); Blood Gas Allen Test Pos; Blood Gas Sample Type Arterial; Carboxyhemoglobin 0.6 %THgb (0.4-20.1); HCO3 ABG 19.9 mmol/L (22-26); HGB O2 Sat 94.7 % (95-100); Ionized Calcium Level - ABG 1.4 mmol/L (1.1-1.4); Methemoglobin 0.5 % (0.4-1.5); Oxygen Saturation ABG 95.7; PO2 ABG 79.4 mmHg (80.0-100.0); Potassium Level - ABG 4.4 mmol/L (3.5-5.0)
[2020-09-18 12:53] LABS: Lactic Sepsis W/Reflex 1.8 mmol/L (0.5-2.2)
--- NOTE | 2020-09-18 12:57 | ECG_ITS ---
[facility] Test Date: 2020-09-18 Pat Name: Sarah Beatty Department: Room: Gender: Female [employer]: : 1955 Requested By: Geena Peters Order Number: [id number] Reading MD: PALMIRA OLIVAREZ Measurements Intervals Elmo Rate: 88 P: 53 HI: 148 QRS: -32 QRSD: 94 T: 33 QT: 370 QTc: 450 Interpretive Statements SINUS RHYTHM LEFT AXIS DEVIATION [QRS AXIS < -30] LOW QRS VOLTAGE IN PRECORDIAL LEADS [QRS DEFLECTION < 1.0 mV IN CHEST LEADS] POSSIBLE ANTERIOR MYOCARDIAL INFARCTION , PROBABLY OLD [30 ms Q WAVE IN V3/V4, OR R < 0.2 mV IN V4] Compared to ECG 09/18/2020 11:06:23 Low QRS voltage now present Myocardial infarct finding now present Electronically Signed On 09-18-2020 20:30:22 [employer] by PALMIRA OLIVAREZ [id number]
[2020-09-18 13:11] LABS: Creatine Phosphokinase 60 U/L (26-192)
[2020-09-18 13:30] LABS: Bilirubin Urine Neg (Negative); Blood Urine Neg (Negative); Glucose Urine UA 4+ (Normal); Ketones Urine Negative (Negative); Nitrate Urine Negative (Negative); Protein Urine Neg (Negative); Urine Appearance Clear (CLEAR); Urine Color Yellow (Yellow); Urobilinogen Urine Norm (Negative); pH Urine 5 (5-7)
[2020-09-18 13:38] LABS: Amphetamines Screen Urine Negative (Negative); Barbiturates Screen Urine Negative (Negative); Benzodiazepines Screen Urine Negative (Negative); Cocaine Screen Urine Negative (Negative); Opiate Screen Urine Negative (Negative); PCP Screen Urine Negative (Negative); THC Screen Urine Negative (Negative)
[2020-09-18] MEDS: insulin regular-human 100 units/1 mL 8 UNIT IVP (13:41)
[2020-09-18 13:46] LABS: Add Urine Microscopic? YES; Leukocyte Esterase Urine Trace (Negative)
[2020-09-18 13:47] LABS: Bacteria Urine TRACE /hpf; RBC Urine 0-4 /hpf (0-2); Squamous Epithelial Cell Urine 0-4 /hpf (0-5); WBC Urine 0-4 /hpf (0-5)
[2020-09-18 13:48] LABS: Add Urine Culture? No
--- NOTE | 2020-09-18 13:49 | PC.NURSE ---
Patient was able to walk from her room to the double doors and back with little assistance from the nurse and tech. Patient was a bit unsteady and used the gutierrez to help her keep her bearings and balance. Patient stated that she did not feel dizzy or faint, just a little wobbly. Nurse went to inform the PA.
[2020-09-18 14:19] LABS: Troponin 5 2HR 21.93 ng/L (0-10); Troponin 5 2HR Delta 8.93 ABS# (0-10)
[2020-09-18 14:26] VITALS: BP 122/76; PULSE 101; RESP 20; O2SAT 97
== END 2020-09-18 14:28 | disposition home or self-care (01) ==
PROVIDERS: Emergency Provider Physician Assistant
DX: E11.22 Type 2 diabetes mellitus with diabetic chronic kidney disease (principal); I12.9 Hypertensive chronic kidney disease with stage 1 through stage 4 chronic kidney disease, or unspecified chronic kidney disease; N18.32 Chronic kidney disease, stage 3b; D72.829 Elevated white blood cell count, unspecified; E11.65 Type 2 diabetes mellitus with hyperglycemia; Z79.4 Long term (current) use of insulin; E78.5 Hyperlipidemia, unspecified; Z79.899 Other long term (current) drug therapy
CPT/HCPCS: 12345; 36415; 36600; 70450; 71045; 72125; 80051; 80053; 80306; 81001; 82009; 82330; 82550; 82805; 83605; 83735; 84484; 85025; 93005; 96361; 96374; 99282; 99284; J1815; J7030

== ENCOUNTER 2022-07-12 10:47 | Outpatient (RCR) | payer MEDICARE, SELFPAY | END 2022-07-15 23:59 | disposition home or self-care (01) | LOC: SPT 10:47 | PROVIDERS: PCP Electrodiagnostic Medicine; Visit Provider Electrodiagnostic Medicine | DX: R42 Dizziness and giddiness (principal) | CPT/HCPCS: 95992; 97162 ==

== ENCOUNTER 2023-01-17 13:38 | Outpatient (CLI) | payer MEDICARE, SELFPAY ==
--- NOTE | 2023-01-17 14:28 | MM_ITS ---
WS: [id number] BILATERAL 3D TOMOSYNTHESIS DIGITAL SCREENING MAMMOGRAPHY WITH CAD CLINICAL INFORMATION: SCREENING HISTORY: Screening mammogram. No current complaints. COMPARISON: 2016 TECHNIQUE: Bilateral CC and MLO views. FINDINGS: The breasts are composed of heterogeneous fibroglandular density tissue, which can limit the detectio n of small underlying mass lesions. No suspicious mass, asymmetry, calcifications, or architectural d istortion. No evidence of malignancy. Incidental punctate and lucent centered calcifications. MM/[place] [id number] IMPRESSION: BI-RADS: 2-Benign FOLLOW UP: 1 Year Follow-up Recommend return to annual screening mammography.
== END 2023-01-17 13:39 | disposition home or self-care (01) ==
PROVIDERS: PCP Electrodiagnostic Medicine; Visit Provider Electrodiagnostic Medicine
DX: Z12.39 Encounter for other screening for malignant neoplasm of breast (principal)
CPT/HCPCS: 77063; 77067

== ENCOUNTER → 2023-12-26 10:10 | Outpatient (BNVA) | payer MEDICARE, SELFPAY | PROVIDERS: PCP Electrodiagnostic Medicine; Visit Provider Specialist | DX: M17.12 Unilateral primary osteoarthritis, left knee | CPT/HCPCS: 20610; 73560; 73565; 99204 ==

== ENCOUNTER 2024-03-09 04:14 | Emergency (ER) | payer MEDICARE, SELFPAY ==
[2024-03-09 04:27] VITALS: BP 155/67; PULSE 94; RESP 20; TEMP 36.6; O2SAT 97; BMI 32.3
--- NOTE | 2024-03-09 04:38 | XRR_ITS ---
PROCEDURE INFORMATION: Exam: XR Left Shoulder Exam date and time: 03/09/2024 4:40 AM Age: 69 years old Clinical indication: Injury or trauma; Fall; Blunt trauma (contusions or hematomas); Patient HX: Patient fell at 0230 this morning and is C/O worsening left shoulder pain. ; Additional info: Fall pain TECHNIQUE: Imaging protocol: Radiologic exam of the left shoulder. Views: 2 or more views. COMPARISON: CR XR chest 1V portable [id number] 09/18/2020 11:45 AM FINDINGS: Bones/joints: There are degenerative changes involving the acromioclavicular joint. No fracture or dislocation is appreciated. Bony mineralization is decreased. Soft tissues: Normal. XR/XR shoulder LT min 2V* [id number] IMPRESSION: 1. AC joint osteoarthritis.
--- NOTE | 2024-03-09 04:43 | ED_ITS ---
HPI - Fall General: Chief Complaint: Fall Stated Complaint: fall hit left shoulder Time Seen by Provider: 03/09/24 04:31 History of Present Illness: Patient fell this morning about 230 and injured her left shoulder. She having pain in the posterior aspect of her shoulder. It hurts to move. Patient did not have this pain before she fell. There is no obvious deformity. Patient is holding her arm to help relieve the pain. Patient complains of no other pain. There is no head injury or LOC Review of Systems General: Reports: 10 or more systems reviewed and unremarkable except in HPI and below PFSH ED PFSH: Medical History Gout Dyslipidemia -continue statin Obesity HTN (hypertension) Non-insulin dependent diabetes mellitus -A1c-10.1; poorly controlled -Accucheks, hypoglycemia precautions, ISS; Lantus -consistent carb diet as tolerated Surgical History S/P tubal ligation Family History Sister Diabetes Daughter No problems noted. Brother Diabetes Social History Smoking and tobacco/nicotine status: never used tobacco/nicotine Alcohol intake: never Substance/Drug Use: never Lives independently: Yes Physical Exam Const: COMMON NORMALS: no acute distress, average body habitus, patient oriented x3, no limitations, healthy appearing, alert and well nourished HENMT: COMMON NORMALS: normocephalic, atraumatic, hearing grossly normal bilaterally, external ears normal, Normal external nose present and moist oral mucous membranes HEAD & SCALP: normocephalic and atraumatic NOSE: Normal external nose present EXTERNAL EAR: Yes external ears normal Neck/C-Spine: COMMON NORMALS: no JVD Chest: COMMONS NORMALS: normal inspection of the chest and normal palpation of entire chest wall Resp: COMMON NORMALS: normal respiratory effort, No retractions, No use of accessory muscles and clear to auscultation bilaterally AUSCULTATION: clear to auscultation bilaterally Cardio: COMMON NORMALS: no JVD, regular rate, regular rhythm, S1 normal heart sound present, S2 normal heart sound present, No gallops present (Cardio), No clicks present (Cardio), No murmurs present (Cardio) and No rub (Cardio) RATE: regular rate RHYTHM: regular rhythm HEART SOUNDS: S1 normal heart sound present and S2 normal heart sound present GI: COMMON NORMALS: Normal to inspection, nondistended, normoactive bowel sounds present, Soft to palpation, non-tender, No hepatosplenomegaly present and no masses PALPATION: Yes Soft to palpation and Yes No hepatosplenomegaly present Extremity: NARRATIVE EXTREMITY EXAM: Tenderness with palpation on left posterior shoulder area, limited range of motion secondary to pain. No obvious deformity or crepitus noted. Neuro: COMMON NORMALS: patient oriented x3 SENSORIUM/ORIENTATION: Yes alert Course Vital Signs: Vital signs: Vital Signs Temperature 98 F 03/09/24 04:27 Pulse Rate 94 03/09/24 04:27 Respiratory Rate 20 H 03/09/24 04:27 Blood Pressure 155/67 03/09/24 04:27 Pulse Oximetry 97 03/09/24 04:27 MDM - Fall Medical Decision Making X-ray of right x-ray left shoulder reviewed AC joint osteoarthritis, patient was given Toradol 60 mg and said the pain is improved but still there. Patient will be sent home with a prescription for meloxicam and discharged and is to follow- up with her primary care physician. Differential Diagnosis Unlikely syncope, dislocation of shoulder region, fracture of wrist, compression fracture, concussion with loss of consciousness or concussion without loss of consciousness Medical Records I reviewed the patient's medical records. Lab Data I reviewed the patient's lab results. Radiology Impressions Shoulder X-Ray 03/09/24 04:38 IMPRESSION: 1. AC joint osteoarthritis. All radiology interpretation(s) finalized by discharge Discharge Plan Discharge Patient Disposition: Home Clinical Impression: Fall, Acute shoulder pain Condition: Stable Prescriptions: New meloxicam 7.5 mg tablet 7.5 mg PO .Twice daily Qty: 14 0RF No Action Ozempic 0.25 mg or 0.5 mg(2 mg/1.5 mL) pen injector 0.25 mg SUBCUT .weekly Qty: 1.5 3RF Lantus U-100 Insulin 100 unit/mL solution 60 unit SUBCUT BEDTIME cetirizine 10 mg tablet 10 mg PO DAILY@0900 atorvastatin 10 mg tablet 10 mg PO DAILY@2100 amlodipine 10 mg tablet 10 mg PO DAILY@2200 Discharge Orders: Discharge ED (Routine); Ordered 03/09/24 Ordered By: Talat Igelsias Referrals: Lennox Altman DO [Primary Care Provider] - 1 week Patient Instructions: Pain Management Activity Restrictions/Additional Instructions: Please wear your sling at all times for the next 48 hours, please take your pain medicine as directed. It has been sent to [facility] at your request. Please follow- up with your family practice physician within next 7 days for further evaluation and treatment. Coding Level of Care Code ED Office Technology Instructor for Nadeem Mckeon
[2024-03-09] MEDS: ketorolac 60 mg/2 mL INJ IM (04:52)
== END 2024-03-09 05:50 | disposition home or self-care (01) ==
PROVIDERS: Emergency Provider Emergency Medicine; PCP Electrodiagnostic Medicine
DX: M25.512 Pain in left shoulder (principal); E11.9 Type 2 diabetes mellitus without complications; I10 Essential (primary) hypertension; E78.5 Hyperlipidemia, unspecified; E66.9 Obesity, unspecified; Z68.32 Body mass index [BMI] 32.0-32.9, adult; Z79.899 Other long term (current) drug therapy; Z79.4 Long term (current) use of insulin
CPT/HCPCS: 73030; 96372; 99284; J1885

== ENCOUNTER 2025-05-01 09:46 | Outpatient (CLI) | payer MEDICARE, SELFPAY ==
--- NOTE | 2025-05-01 09:53 | MM_ITS ---
WS: [id number] VIEWS: MLO and CC views both breasts. 3D digital tomosynthesis is also included in this exam. Comparison made with prior exam of 03/17/2016, 02/19/2013, 02/23/2012, 02/19/2011, 02/11/2010, 01/17/2023.. Findings: The breasts are heterogeneously dense, which may obscure small masses. No suspicious mass, tumor calcification or architectural distortion. MM/MM scr BI tomosynthesis [id number] Impression: BI-RADS: 2 - Benign FOLLOW-UP: 1 Year Follow-up This mammogram was also analyzed by the Computer Aided Detection System R2 Imag e Testing Analyst.
== END 2025-05-01 09:47 | disposition home or self-care (01) ==
LOC: RAD 09:48
PROVIDERS: PCP Electrodiagnostic Medicine; Visit Provider Electrodiagnostic Medicine
DX: Z12.31 Encounter for screening mammogram for malignant neoplasm of breast (principal); R92.333 Mammographic heterogeneous density, bilateral breasts
CPT/HCPCS: 77063; 77067

== ENCOUNTER → 2025-05-07 09:52 | Outpatient (BNVA) | payer MEDICARE, SELFPAY | PROVIDERS: PCP Electrodiagnostic Medicine; Visit Provider Student in an Organized Health Care Education/Training Program | DX: M25.561 Pain in right knee (principal); M25.562 Pain in left knee; M17.0 Bilateral primary osteoarthritis of knee; M17.10 Unilateral primary osteoarthritis, unspecified knee | CPT/HCPCS: 73560; 73565 ==

== ENCOUNTER 2025-05-07 11:54 | Outpatient (CLI) | payer MEDICARE, SELFPAY | END 2025-05-07 11:55 | PROVIDERS: PCP Electrodiagnostic Medicine; Visit Provider Student in an Organized Health Care Education/Training Program | DX: Z46.89 Encounter for fitting and adjustment of other specified devices (principal); M25.562 Pain in left knee | CPT/HCPCS: J3301; J9999; L1851 ==